=== PATIENT | male | born 1975 | race Caucasian/White ===

== ENCOUNTER → 2021-09-22 14:25 | Outpatient (BNVA) | payer MEDICAID, SELFPAY | PROVIDERS: PCP Hospitalist; Referring Provider Hospitalist; Visit Provider Internal Medicine | DX: Z95.3 Presence of xenogenic heart valve (principal); Z86.79 Personal history of other diseases of the circulatory system | CPT/HCPCS: 93005; 99202 ==

== ENCOUNTER → 2021-11-07 12:46 | Outpatient (REF) | payer MEDICAID, SELFPAY ==
--- NOTE | 2021-11-07 12:53 | CA_ITS ---
Transthoracic Echocardiogram Patient (Last, First, Middle): Jesus Alberto Galloway, Gender: Male Date of : 1975 Age: 46 Procedure Date: 11/07/2021 Procedure Type: Transthoracic Echocardiogram Location: OP Height: 185.42 cm Weight: 81.65 kg BSA: 2.06 m2 Heart Rate: bpm BP: 130 / 82 mmHg Husker Operator: LUL Referring MD: Shahbaz Tsai MD Air Tank Assembler: Kishore Alcantar MD Symptoms: Z95.3 - Presence of xenogenic heart valve Study Quality: Fair ECG Rhythm: Sinus Conclusions: - 1. Low normal LV ejection fraction with LVEF of 50-55% 2. Normally function bioprosthetic aortic valve 3. Eccentric mild aortic regurgitation 4. Normal RV systolic pressure 5. No gross pericardial effusion Findings Left Ventricle Normal left ventricular cavity size. There is normal left ventricular wall thickness. The left ventricular systolic function is low normal. The visually estimated ejection fraction is between 50-55%. Regional wall motion abnormalities can not be excluded due to suboptimal endocardial definition. There is paradoxical septal motion consistent with post-operative status. Diastolic function is indeterminate on the basis of available data. Right Ventricle Normal right ventricular cavity size and systolic function. Atria The left atrium is normal in size. Interatrial shunt cannot be excluded. The right atrium was not well visualized. Aortic Valve The aortic valve structure and function is likely normal. There is no aortic valve stenosis. There is mild aortic valve regurgitation. Mitral Valve A bioprosthetic mitral valve is present. The prosthetic mitral valve appears to be functioning normally. The mean mitral valve gradient is 4.00 mmHg. the valve is well seated without abnormal rocking motion. Pulmonic Valve The pulmonic valve was not well visualized. Tricuspid Valve Likely normal tricuspid valve structure and function. There is trace tricuspid valve regurgitation. The right ventricular systolic pressure is normal. Normal right atrial pressure. There is no evidence of pulmonary hypertension. Great Vessels All visible segments of the aorta are normal in size. The pulmonary artery was not well visualized. Venous The inferior vena cava is normal in size and collapses greater than 50% with inspiration. Pericardium/Pleural There is no evidence of pericardial effusion. Prior Study Comparison No prior study available for comparison. Measurements 2D Linear Measurements IVSd: 0.92 0.6-0.9/0.6-1.0 cm LVIDd: 4.03 3.9-5.3/4.2-5.9 cm LVIDd Index: 1.96 2.4-3.2/2.2-3.1 cm/m2 LVIDs: 2.83 2.0-3.6 cm LVPWd: 1.02 0.7-1.1 cm LA Diam: 3.10 2.7-3.8/3.0-4.0 cm LAIDs Index: 1.50 1.5-2.3 cm/m2 LV Mass: 152.88 67-162/88-224 g LV Mass Index: 74.22 43-95/49-115 g/m2 LVOT Diam: 2.10 3.0+(-)1.3 cm 2D Systolic Function EF 4C: 52.40 >55% EF 2C: 57.50 >55% EF BiP: 53.70 >55% Mitral Valve MV VTI: 0.44 MV Pk David: 1.49 MV Mn David: 0.93 MV Pk Grad: 9.00 MV Mn Grad: 4.00 MV Pk E: 1.31 MV PK A: 1.29 MV Decel Time: 251.00 E/A: 1.00 E'Lateral: 9.25 E'Medial: 7.18 E/E' Med: 18.20 E/E' Lat: 14.20 PHT: 74.00 MVA PHT: 2.97 MVA Continuity: 1.38 Decel Placer: 5.22 Aortic Valve AoV Pk David: 1.30 AoV Mn David: 0.88 AoV VTI: 0.25 AoV Pk Grad: 7.00 Aov Mn Grad: 4.00 JAJA Cont.VTI: 2.46 LVOT LVOT Pk David: 0.98 LVOT Mn David: 0.66 LVOT VTI: 0.18 LVOT Pk Grad: 4.00 LVOT Mn Grad: 2.00 LVOT Diam: 2.10 LVOT Area: 3.46 Diastolic Function MV Pk E: 1.31 MV Pk A: 1.29 E/A: 1.00 E'Medial: 7.18 E/E' Med: 18.20 E' Laterial: 9.25 E/E' Lat: 14.20 Right Ventricle TAPSE (mm): 17.80 TVS' David: 8.92 Tricuspid Valve TR Pk David: 1.59 TR Pk Grad: 10.00 RA Press: 3.00 RVSP: 13.00 Great Vessels Aorta Sinus of Valsalva: 3.49 2.0-3.[address] Ridge: 2.77 1.7-3.4 cm Ao Asc: 3.30 2.1-3.4 cm Ao Arch: 2.80 Updated in Other Vendor System with Status of Final Kishore Alcantar MD electronically signed on 11/08/2021 12:14:38 PM with status of Final
== END ==
LOC: HO.CARD 12:46
PROVIDERS: PCP Hospitalist; Visit Provider Internal Medicine
DX: Z95.3 Presence of xenogenic heart valve (principal)
CPT/HCPCS: 93306

== ENCOUNTER → 2021-12-02 12:21 | Outpatient (BNVA) | payer MEDICAID, SELFPAY | PROVIDERS: PCP Hospitalist; Referring Provider Hospitalist; Visit Provider Internal Medicine | DX: Z95.3 Presence of xenogenic heart valve (principal); Z86.79 Personal history of other diseases of the circulatory system; Z79.82 Long term (current) use of aspirin; Z79.899 Other long term (current) drug therapy | CPT/HCPCS: 99212 ==

== ENCOUNTER 2022-04-02 07:11 | Outpatient (REF) | payer MEDICAID, SELFPAY ==
--- NOTE | ~2022-04-02 | CT_ITS ---
EXAMINATION: CT HEAD WITHOUT CONTRAST CLINICAL INFORMATION: Stroke COMPARISON: None TECHNIQUE: Contiguous axial imaging was performed from the skull base to vertex without intravenous administration of contrast. This CT examination was performed using dose optimization techniques as appropriate, variously including the following: *Automated exposure control *Adjustment of mA and/or kV according to patient size (this includes techniques or standardized protocols for targeted exams where dose is matched to indication/reason for exam; i.e. extremities or head) *Use of iterative reconstruction technique DLP: 780 mGy-cm FINDINGS: There is no evidence of an extra-axial collection. There is no evidence of intra-axial or extra-axial hemorrhage. Ventricles and extra-axial CSF spaces are appropriate. There is nonspecific periventricular white matter disease. There is low-attenuation seen in the bilateral thalamus and basal ganglia, right greater than left, probably representing small lacunar infarcts. Review of bone windows is normal. There is sinus disease in the bilateral posterior ethmoid and sphenoid sinuses. CT/CT head/brain wo con IMPRESSION: Nonspecific periventricular white matter disease and probable bilateral thalamic and basal ganglia lacunar infarcts, right greater than left. Ethmoid and sphenoid sinus disease.
== END 2022-04-02 07:12 | disposition home or self-care (01) ==
LOC: HO.CT 07:11
PROVIDERS: Visit Provider Psychiatry & Neurology Neurology
DX: I63.9 Cerebral infarction, unspecified (principal)
CPT/HCPCS: 70450

== ENCOUNTER 2022-08-18 10:28 | Emergency (ER) | payer MEDICAID, SELFPAY ==
--- NOTE | ~2022-08-18 | CT_ITS ---
EXAMINATION: CT HEAD WITHOUT CONTRAST CLINICAL INFORMATION: Left upper extremity numbness COMPARISON: 04/02/2022 TECHNIQUE: Contiguous axial imaging was performed from the skull base to vertex without intravenous administration of contrast. This CT examination was performed using dose optimization techniques as appropriate, variously including the following: *Automated exposure control *Adjustment of mA and/or kV according to patient size (this includes techniques or standardized protocols for targeted exams where dose is matched to indication/reason for exam; i.e. extremities or head) *Use of iterative reconstruction technique DLP: 720 mGy-cm FINDINGS: Deep white matter low-attenuation in the periventricular regions and thalamic regions are noted. Given the patient's age, consideration should be given to a primary demyelinating process. MRI with diffusion-weighted sequences is advised. No hemorrhage, mass or mass effect. No extra-axial collections. Overall findings are considered stable. Sulci and ventricles are normal in size. Calvarium intact. CT/CT head/brain wo IV con IMPRESSION: Persistent white matter changes noted. Recommend MRI to exclude a demyelinating process or neuro Lyme disease.
[2022-08-18 10:42] VITALS: BP 105/78; BP 112/80; PULSE 78; RESP 18; TEMP 36.6; O2SAT 95; O2SAT 96; BMI 20.3
[2022-08-18 10:45] VITALS: BP 105/65; PULSE 78; RESP 14; TEMP 36.6; O2SAT 97
--- NOTE | 2022-08-18 11:38 | ECG_ITS ---
Test Reason : LEFT SIDE NUMBNESS Blood Pressure : / mmHG Vent. Rate : 062 BPM Atrial Rate : 062 BPM P-R Int : 166 ms QRS Dur : 082 ms QT Int : 414 ms P-R-T Axes : 065 006 064 degrees QTc Int : 420 ms Normal sinus rhythm Normal ECG No previous ECGs available Referred By: Isidro Mccray Electronically Signed By:Thien Velázquez
--- NOTE | 2022-08-18 12:08 | ED.NEUROSD ---
HPI - Neuro Symptoms/Deficit General Chief Complaint: Neuro Symptoms/Deficit Stated Complaint: LT SIDE NUMBNESS TINGLING Time Seen by Provider: 08/18/22 10:59 Source: patient Mode of arrival: ambulatory Limitations: no limitations History of Present Illness HPI Narrative: 47-year-old male history of endocarditis history of of CVA in 2019 with slight left-sided weakness since stroke 2019 sent from [facility] for evaluation of numbness/tingling of left side extremities. Patient states since having stroke 2019 he has had chronic numbness/tingling of left-sided extremity and also chronic left sided weakness. Patient states presently no facial droop, slurred speech, paralysis of extremities, dizziness, headache, chest pain, shortness of breath, or loss of vision. Patient denies any new weakness in extremities. Related Data Home Medications Medication Instructions Recorded Confirmed apixaban 5 mg tablet 5 mg PO BID 09/22/21 12/02/21 aspirin 81 mg tablet,delayed 81 mg PO DAILY 09/22/21 12/02/21 release atorvastatin 20 mg tablet 20 mg PO BEDTIME 09/22/21 12/02/21 duloxetine 60 mg capsule,delayed 60 mg PO DAILY 09/22/21 12/02/21 release (Cymbalta) folic acid 1 mg tablet 1 mg PO DAILY 09/22/21 12/02/21 furosemide 20 mg tablet 20 mg PO DAILY 09/22/21 12/02/21 gabapentin 400 mg capsule 400 mg PO BID 09/22/21 12/02/21 gabapentin 800 mg tablet 800 mg PO DAILY 09/22/21 12/02/21 hydroxyzine HCl 50 mg tablet 50 mg PO BID 09/22/21 12/02/21 levetiracetam 750 mg tablet 750 mg PO BID 09/22/21 12/02/21 (Keppra) melatonin 3 mg capsule 3 mg PO BEDTIME PRN 09/22/21 12/02/21 ondansetron HCl 4 mg tablet 4 mg PO Q8H 09/22/21 12/02/21 posaconazole 100 mg tablet,delayed 300 mg PO DAILY 09/22/21 12/02/21 release sennosides 8.6 mg capsule (senna) 8.6 mg PO DAILY 09/22/21 12/02/21 thiamine HCl (vitamin B1) 100 mg 50 mg PO DAILY 09/22/21 12/02/21 tablet trazodone 100 mg tablet 100 mg PO BEDTIME PRN 09/22/21 12/02/21 Allergies Allergy/AdvReac Type Severity Reaction Status Date / Time No Known Allergies Allergy Verified 12/02/21 12:33 Review of Systems Review of Systems: numbness and left tingling left side of body PMFSH Past Medical History Surgical History History of heart valve replacement (~10/2020) Family History Family History Father No problems noted. Mother No problems noted. Social History Social History Patient Tobacco Use Status: Current everyday Tobacco user Cigarettes Per Day: 4 Smoked in Last 30 Days: No Use of substances other than those prescribed or required for medical reasons: No Advance Directives: No Advance Directives Information Provided: Yes Physical Exam Vital Signs: Vital Signs: Last Vital Signs Temp 97.9 F 08/18/22 13:07 Pulse 66 08/18/22 13:07 Resp 14 08/18/22 13:07 BP 104/71 08/18/22 13:07 Pulse Ox 98 08/18/22 13:07 O2 Del Method 08/18/22 13:07 BMI result Body Mass Index 20.3 Const: General: cooperative, healthy appearing, comfortable, no acute distress, well developed, alert, awake and Physically active Orientation/consciousness: oriented to person, oriented to place, oriented to time and patient oriented x3 HEENT: Head: Yes normal to inspection, Yes No palpable skull fracture present, Yes normocephalic, Yes atraumatic and No abrasion Eyes: General: appearance normal, both eyes and all related structures Neck: Neck: Yes normal visual inspection, Yes full ROM, Yes no lymphadenopathy, Yes no meningeal signs, Yes trachea midline, Yes supple, No anterior neck swelling and No tender Chest: Chest palpation & inspection: normal inspection of the chest and normal palpation of entire chest wall Resp: Effort & Inspection: normal respiratory effort and able to speak in complete sentences Auscultation: clear to auscultation bilaterally Cardio: Jugular venous distension: no JVD Heart sounds: S1 normal heart sound present and S2 normal heart sound present GI: Inspection: Yes normal to inspection Palpation (GI): Soft to palpation, not firm, nontender, no guarding and not rigid : General: No CVA tenderness and Yes no CVA tenderness Back/Spine/Pelvis: Back: no CVA tenderness, No CVA tenderness and No back tenderness Skin: General skin exam: no rashes or lesions noted and elasticity normal Neuro: Other: Negative pronator drift. Negative slurred speech. Negative Romberg. [id number] rapid hand movement intact. Negative facial droop. Patient has sensation all extremities. Left-sided extremities 4+ strength which is patient's baseline. Right-sided extremities 5+. General: oriented to person, oriented to place, oriented to time, patient oriented x3, gait normal, tone normal, moves all extremities, Normal light touch and pain sensation, no meningeal signs, no focal motor deficits and CN's II-XI intact bilaterally Course Course Course Narrative: NIH core is zero. Will send for dry head CT scan and labs and EKG. Casee discuused with Dr. Bach no need for code stroke. Reevaluation(s) Reevaluation #1: No need for code stroke. Head CT scan negative for stroke but does shows demyelinating process of CT scan. Patient informed you need to follow-up outpatient MRI and neurologist. And is [facility] facility. Patient walk around the ER without any neuro deficits. EKG 1st troponin negative. Patient refused 2nd troponin. Patient understand risks of if there is an actual myocardial infarction. Patient still refused. Patient will go back to [facility]. Patient given copy of CAT scan results. Time: 16:18 Reevaluation #2: Normal sinus rhythm. Ventricular rate 62. Pr interval 166. QRS 82. QTC 420. Negative STEMI. Patient given copy of CT scan with reading of demyelinating process. EMS picked the patient was [facility] have outpatient follow-up MRI. Time: 16:44 Medical Decision Making Lab Data Result Diagrams: 08/18/22 12:32 08/18/22 12:16 Labs: Lab Results 08/18/22 08/18/22 12 Range/Units 12:16 12:16 12:32 WBC 8.3 (4.8-10.8) X10*3/uL RBC 4.68 (4.60-5.80) X10*6/uL Hgb 15.4 (14.0-18.0) g/dl Hct 43.6 (42.0-52.0) % MCV 93.2 (80.0-98.0) fL MCH 32.9 (27.0-33.0) pg MCHC 35.3 (31.0-36.0) g/dl RDW 11.3 (11.0-16.0) % Plt Count 219 (160-400) X10*3/uL MPV 10.9 (9.4-12.4) fL Immature Gran % (Auto) 0.2 (0.0-0.4) % Neut % (Auto) 63.7 (45-73) % Lymph % (Auto) 27.2 (20-40) % [place] % (Auto) 6.3 (2-11) % Eos % (Auto) 2.4 (0-4) % Baso % (Auto) 0.2 (0-2) % Lymph # (Auto) 2.3 (1.2-4.9) X10*3/uL [place] # (Auto) 0.5 (0.1-1.2) X10*3/uL Eos # (Auto) 0.2 (0.0-0.4) X10*3/uL Baso # (Auto) 0.0 (0.0-0.2) X10*3/uL Abs Immat Gran (auto) 0.02 (0.00-0.03) X10*3/uL Absolute Neuts (auto) 5.3 (2.0-8.3) x10*3/uL Absolute Nucleated RBC 0.000 (0.0-0.012) X10*3/uL Nucleated RBC % (auto) 0.0 (0.0-0.2) /100WBC PT 17.1 H (10.0-13.1) SEC INR 1.5 H (0.9-1.1) APTT 37.2 H (26.0-36.4) SEC Sodium 141 (135-145) mmol/L Potassium 4.9 (3.3-5.1) mmol/L Chloride 107 (96-108) mmol/L Carbon Dioxide 28 (22-29) mmol/L Anion Gap 11 L (12-20) BUN 23 H (9-16) mg/dL Creatinine 1.19 (0.5-1.4) mg/dL Estim Creat Clear Calc 73.8 Estimated GFR > 60 Random Glucose 81 (60-115) mg/dL Calcium 9.5 (8.4-10.2) mg/dL Magnesium 2.0 (1.6-2.6) mg/dL Total Bilirubin 0.7 (0.0-1.0) mg/dL AST 29 (5-37) U/L ALT 55 H (0-40) U/L Alkaline Phosphatase 57 (39-117) U/L Troponin I High Sens (<3.5-35.0) ng/L Total Protein 6.9 (6.5-8.0) g/dL Albumin 4.1 (3.5-5.0) g/dL 08/18/22 Range/Units 12:32 WBC (4.8-10.8) X10*3/uL RBC (4.60-5.80) X10*6/uL Hgb (14.0-18.0) g/dl Hct (42.0-52.0) % MCV (80.0-98.0) fL MCH (27.0-33.0) pg MCHC (31.0-36.0) g/dl RDW (11.0-16.0) % Plt Count (160-400) X10*3/uL MPV (9.4-12.4) fL Immature Gran % (Auto) (0.0-0.4) % Neut % (Auto) (45-73) % Lymph % (Auto) (20-40) % [place] % (Auto) (2-11) % Eos % (Auto) (0-4) % Baso % (Auto) (0-2) % Lymph # (Auto) (1.2-4.9) X10*3/uL [place] # (Auto) (0.1-1.2) X10*3/uL Eos # (Auto) (0.0-0.4) X10*3/uL Baso # (Auto) (0.0-0.2) X10*3/uL Abs Immat Gran (auto) (0.00-0.03) X10*3/uL Absolute Neuts (auto) (2.0-8.3) x10*3/uL Absolute Nucleated RBC (0.0-0.012) X10*3/uL Nucleated RBC % (auto) (0.0-0.2) /100WBC PT (10.0-13.1) SEC INR (0.9-1.1) APTT (26.0-36.4) SEC Sodium (135-145) mmol/L Potassium (3.3-5.1) mmol/L Chloride (96-108) mmol/L Carbon Dioxide (22-29) mmol/L Anion Gap (12-20) BUN (9-16) mg/dL Creatinine (0.5-1.4) mg/dL Estim Creat Clear Calc Estimated GFR Random Glucose (60-115) mg/dL Calcium (8.4-10.2) mg/dL Magnesium (1.6-2.6) mg/dL Total Bilirubin (0.0-1.0) mg/dL AST (5-37) U/L ALT (0-40) U/L Alkaline Phosphatase (39-117) U/L Troponin I High Sens < 2.7 (<3.5-35.0) ng/L Total Protein (6.5-8.0) g/dL Albumin (3.5-5.0) g/dL NIH Stroke Scale Internal: Initial- Upon Arrival Level of Consciousness: Alert Level of Consciousness Questions: Answers both questions correctly Level of Consciousness Commands: Performs both tasks correctly Best Gaze: Normal Visual: No visual loss Facial Palsy: Normal Motor Arm (Right): No drift Motor Arm (Left): No drift Motor Leg (Right): No drift Motor Leg (Left): No drift Limb Ataxia: Absent Sensory: Normal Best Language: No aphasia Dysarthia: Normal Extinction and Inattention: No abnormality Score: 0 Discharge Plan Discharge Clinical Impression: Paresthesia Patient Disposition: er [facility] Transfer Details: BACK TO [facility] WITH [facility] Instructions: Paresthesia (ED) Additional Instructions: Return to ED immediately for any facial droop, loss of vision, paralysis of extremities, chest pain, shortness of breath, dizziness, slurred speech, or any other concerning symptoms. Prescriptions: No Action apixaban 5 mg tablet 5 mg PO BID aspirin 81 mg tablet,delayed release (DR/EC) 81 mg PO DAILY atorvastatin 20 mg tablet 20 mg PO BEDTIME duloxetine [Cymbalta] 60 mg capsule,delayed release(DR/EC) 60 mg PO DAILY furosemide 20 mg tablet 20 mg PO DAILY folic acid 1 mg tablet 1 mg PO DAILY gabapentin 400 mg capsule 400 mg PO BID gabapentin 800 mg tablet 800 mg PO DAILY hydroxyzine HCl 50 mg tablet 50 mg PO BID levetiracetam [Keppra] 750 mg tablet 750 mg PO BID melatonin 3 mg capsule 3 mg PO BEDTIME PRN ondansetron HCl 4 mg tablet 4 mg PO Q8H posaconazole 100 mg tablet,delayed release (DR/EC) 300 mg PO DAILY senna 8.6 mg capsule 8.6 mg PO DAILY thiamine HCl (vitamin B1) 100 mg tablet 50 mg PO DAILY trazodone 100 mg tablet 100 mg PO BEDTIME PRN Stand Alone Forms: Against Medical Advice Interventions: ED Discharge Assessment Last Done: 08/18/22 17:31 Discharge Date/Time: 08/18/22 17:32 Print Language: Albanian
[2022-08-18 12:28] LABS: INTERNATIONAL NORM RATIO 1.5 (0.9-1.1); Prothrombin Time 17.1 SEC (10.0-13.1)
[2022-08-18 12:31] LABS: Partial Thromboplastin Time 37.2 SEC (26.0-36.4)
[2022-08-18 12:38] LABS: Basophils Percent Auto 0.2 % (0-2); Eosinophils Absolute Auto 0.2 X10*3/uL (0.0-0.4); Eosinophils Percent Auto 2.4 % (0-4); Hematocrit 43.6 % (42.0-52.0); Hemoglobin 15.4 g/dl (14.0-18.0); Imm Gran Abs Auto 0.02 X10*3/uL (0.00-0.03); Imm Gran Pct Auto 0.2 % (0.0-0.4); Lymphocytes Absolute Auto 2.3 X10*3/uL (1.2-4.9); Lymphocytes Percent Auto 27.2 % (20-40); MANUAL DIFF FLAG NO; Mean Corpuscular HGB Conc 35.3 g/dl (31.0-36.0); Mean Corpuscular Hemoglobin 32.9 pg (27.0-33.0); Mean Corpuscular Volume 93.2 fL (80.0-98.0); Mean Platelet Volume 10.9 fL (9.4-12.4); Monocytes Absolute Auto 0.5 X10*3/uL (0.1-1.2); Monocytes Percent Auto 6.3 % (2-11); Neutrophils Absolute Auto 5.3 x10*3/uL (2.0-8.3); Neutrophils Percent Auto 63.7 % (45-73); Platelet Count 219 X10*3/uL (160-400); Red Blood Count 4.68 X10*6/uL (4.60-5.80); Red Cell Distribution Width 11.3 % (11.0-16.0); White Blood Count 8.3 X10*3/uL (4.8-10.8)
[2022-08-18 12:45] LABS: Alanine Aminotransferase 55 U/L (0-40); Albumin Level 4.1 g/dL (3.5-5.0); Alkaline Phosphatase 57 U/L (39-117); Anion Gap 11 (12-20); Aspartate Amino Transferase 29 U/L (5-37); Blood Urea Nitrogen 23 mg/dL (9-16); Calcium 9.5 mg/dL (8.4-10.2); Carbon Dioxide 28 mmol/L (22-29); Chloride 107 mmol/L (96-108); Creatinine Clr Calc Pharmacy 73.8; Estimated Glomerular Filt Rate > 60; Glucose Random 81 mg/dL (60-115); Potassium 4.9 mmol/L (3.3-5.1); Sodium 141 mmol/L (135-145); Total Protein 6.9 g/dL (6.5-8.0)
[2022-08-18 13:02] LABS: Bilirubin Total 0.7 mg/dL (0.0-1.0)
[2022-08-18 13:07] VITALS: BP 104/71; PULSE 66; RESP 14; TEMP 36.6; O2SAT 98
--- NOTE | 2022-08-18 13:13 | PC.NURSE ---
no neuro deficits noted, miranda. pt aware of plan care.
[2022-08-18 13:55] LABS: Troponin-I High Sensitivity < 2.7 ng/L (<3.5-35.0)
--- NOTE | 2022-08-18 14:55 | PC.NURSE ---
pt adamantly refused to have 2nd trop-n to be drawn by pct. mlp (sissy) aware.
--- NOTE | 2022-08-18 17:05 | PC.NURSE ---
pt refused all labs and vitals. pt states he does not want any further care done. RN aware
== END 2022-08-18 17:32 | disposition skilled nursing facility (03) ==
PROVIDERS: Physician Assistant; Emergency Provider Student in an Organized Health Care Education/Training Program; PCP Hospitalist
DX: R20.2 Paresthesia of skin (principal); F17.210 Nicotine dependence, cigarettes, uncomplicated; Z95.3 Presence of xenogenic heart valve; Z79.01 Long term (current) use of anticoagulants; Z79.82 Long term (current) use of aspirin; Z79.02 Long term (current) use of antithrombotics/antiplatelets; Z79.899 Other long term (current) drug therapy; I69.354 Hemiplegia and hemiparesis following cerebral infarction affecting left non-dominant side
CPT/HCPCS: 36415; 70450; 80053; 83735; 84484; 85025; 85610; 85730; 93005; 99284

== ENCOUNTER → 2022-12-29 08:05 | Outpatient (BNVA) | payer MEDICAID, SELFPAY | PROVIDERS: PCP Hospitalist; Referring Provider Hospitalist; Visit Provider Internal Medicine | DX: Z86.79 Personal history of other diseases of the circulatory system (principal); Z95.3 Presence of xenogenic heart valve | CPT/HCPCS: 99212 ==

== ENCOUNTER → 2023-01-11 10:46 | Outpatient (REF) | payer MEDICAID, SELFPAY ==
--- NOTE | 2023-01-11 10:51 | CA_ITS ---
Transthoracic Echocardiogram Patient (Last, First, Middle): Jesus Alberto Galloway, Gender: Male Date of : 1975 Age: 47 Procedure Date: 01/11/2023 Procedure Type: Transthoracic Echocardiogram Location: OP Height: 185.42 cm Weight: 97.52 kg BSA: 2.22 m2 Heart Rate: 57 bpm BP: 110 / 70 mmHg Spool Cleaner: ISAC Referring MD: Shahbaz Tsai MD Symptoms: Z95.3 - Presence of xenogenic heart valve Study Quality: Fair ECG Rhythm: Bradycardia Conclusions: - The left ventricular systolic function is low normal. The calculated ejection fraction is 52% by biplane method. - A bioprosthetic mitral valve is present. The prosthetic mitral valve appears to be functioning normally. - There is mild aortic valve regurgitation. Findings Left Ventricle Normal left ventricular cavity size. There is normal left ventricular wall thickness. The left ventricular systolic function is low normal. The calculated ejection fraction is 52% by biplane method. There is no evidence of regional wall motion abnormalities. Diastolic function is normal for age. LV peak GLS -12.1%. Right Ventricle Normal right ventricular cavity size. There is mildly decreased right ventricular systolic function. Atria Both atria are normal in size. Aortic Valve There is a normal trileaflet aortic valve. There is mild calcification of the aortic valve. There is no aortic valve stenosis. There is mild aortic valve regurgitation. Mitral Valve A bioprosthetic mitral valve is present. The prosthetic mitral valve appears to be functioning normally. There is no mitral valve stenosis. Mean gradient across the mitral valve 3mmHg at 58/min. Pulmonic Valve The pulmonic valve is likely normal. Tricuspid Valve Normal tricuspid valve structure. There is trace tricuspid valve regurgitation. There is no evidence of pulmonary hypertension. Great Vessels The asc aorta is normal in size. Venous The inferior vena cava is normal in size and collapses greater than 50% with inspiration. Pericardium/Pleural There is no evidence of pericardial effusion. Prior Study Comparison No significant change compared to prior study dated: 11/07/2021. Measurements 2D Linear Measurements IVSd: 1.01 0.6-0.9/0.6-1.0 cm LVIDd: 5.30 3.9-5.3/4.2-5.9 cm LVIDd Index: 2.39 2.4-3.2/2.2-3.1 cm/m2 LVIDs: 4.18 2.0-3.6 cm LVPWd: 0.97 0.7-1.1 cm LA Diam: 3.40 2.7-3.8/3.0-4.0 cm LAIDs Index: 1.53 1.5-2.3 cm/m2 LV Mass: 246.26 67-162/88-224 g LV Mass Index: 110.93 43-95/49-115 g/m2 LVOT Diam: 2.00 3.0+(-)1.3 cm 2D Systolic Function EF 4C: 50.00 >55% EF 2C: 52.20 >55% EF BiP: 51.50 >55% Mitral Valve MV VTI: 0.55 MV Pk David: 1.45 MV Mn David: 0.83 MV Pk Grad: 8.00 MV Mn Grad: 3.00 MV Pk E: 1.40 MV PK A: 1.02 MV Decel Time: 321.00 E/A: 1.40 E'Lateral: 5.85 E'Medial: 7.58 E/E' Med: 18.50 E/E' Lat: 23.90 PHT: 94.00 MVA PHT: 2.34 MVA Continuity: 0.88 Decel Mineral: 4.35 Aortic Valve AoV Pk David: 1.16 AoV Pk Grad: 5.00 AI Pk David: 4.21 AI Mineral: 1.40 LVOT LVOT Pk David: 0.78 LVOT Mn David: 0.55 LVOT VTI: 0.15 LVOT Pk Grad: 2.00 LVOT Mn Grad: 1.00 LVOT Diam: 2.00 LVOT Area: 3.14 Diastolic Function MV Pk E: 1.40 MV Pk A: 1.02 E/A: 1.40 E'Medial: 7.58 E/E' Med: 18.50 E' Laterial: 5.85 E/E' Lat: 23.90 Right Ventricle TAPSE (mm): 18.00 TVS' David: 6.83 Tricuspid Valve TR Pk David: 1.58 TR Pk Grad: 10.00 RA Press: 3.00 RVSP: 13.00 Great Vessels Aorta Sinus of Valsalva: 3.50 2.0-3.5 cm Ao Asc: 3.40 2.1-3.4 cm Pulmonary Valve PV Pk David: 0.67 Peak PV Grad: 2.00 Updated in Other Vendor System with Status of Final Shahbaz Tsai MD electronically signed on 01/11/2023 12:24:52 PM with status of Final
== END ==
LOC: HO.CARD 10:46
PROVIDERS: PCP Hospitalist; Visit Provider Internal Medicine
DX: Z95.3 Presence of xenogenic heart valve (principal); Z86.79 Personal history of other diseases of the circulatory system
CPT/HCPCS: 93306; 93356

== ENCOUNTER 2023-03-25 14:15 | Outpatient (REF) | payer MEDICAID, SELFPAY ==
--- NOTE | ~2023-03-25 | MR_ITS ---
EXAMINATION: MR BRAIN WITHOUT CONTRAST CLINICAL INFORMATION: Demyelinating process. COMPARISON: CT head from 08/18/2022. TECHNIQUE: MRI of the brain was obtained using routine sequences without contrast. FINDINGS: There are multiple T2/FLAIR hyperintense lesions. This includes lesions within the subcortical, deep white matter, periventricular, callosal, brainstem, and cerebellar distributions. Regions of chronic encephalomalacia in the high left frontal lobe. No focal restricted diffusion is demonstrated to suggest acute or subacute cerebral ischemia. No evidence of acute hemorrhagic products on heme-sensitive imaging. Punctate focus of susceptibility artifact at the junction of the left occipitotemporal lobes consistent with petechial microhemorrhage. There is a punctate T1 hyperintense lipomatous structure along the superior aspect of the superior medullary the velum. Proportional prominence of the ventricles and sulcal spaces without evidence of obstructive hydrocephalus. No abnormal mass effect. No midline shift. Normal appearance of the pituitary gland. Normal positioning of the cerebellar tonsils. Normal arterial and venous vascular flow voids are present. Normal, homogeneous marrow signal. Moderate mucosal thickening of the paranasal sinuses. Moderate rightward nasal septal deviation. No signal abnormalities within the mastoids. MR/MR head/brain wo con IMPRESSION: Moderate supratentorial and infratentorial white matter disease. This pattern of disease could be seen with an underlying diagnosis of demyelination in the appropriate clinical setting. No abnormal restricted diffusion to suggest active demyelination.
== END 2023-03-25 14:16 | disposition home or self-care (01) ==
LOC: HO.MRI 14:15
PROVIDERS: PCP Hospitalist; Visit Provider Hospitalist
DX: R20.2 Paresthesia of skin (principal); I69.398 Other sequelae of cerebral infarction
CPT/HCPCS: 70551

== ENCOUNTER 2023-09-19 12:56 | Emergency (ER) | payer MEDICARE, MEDICAID, SELFPAY ==
[2023-09-19 13:05] VITALS: BP 141/85; PULSE 70; RESP 16; TEMP 36.4; O2SAT 98; BMI 34.2
[2023-09-19] MEDS: Fluorescein Sodium STRIP 1 STRIP EYE-LEFT (13:15)
[2023-09-19] MEDS: Tetracaine HCl/PF 0.5% Oph Sol 4 ML DROPS 1 DROP EYE-LEFT (13:15)
--- NOTE | 2023-09-19 13:17 | ED_ITS ---
HPI - Eye Problem General Chief complaint: Eye Problems Stated complaint: L EYE SWELLING RED Time Seen by Provider: 09/19/23 13:02 Source: patient and EMS Mode of arrival: EMS Limitations: no limitations History of Present Illness HPI Narrative: This is a 48 years old man resident of [place] retirement presented to the emergency department complaining of left eye discomfort since this morning. 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 MD chief complaint: eye pain (let) Onset (ago): hour(s) (8) Onset description: gradual Duration: constant Location: left eye Eye Symptoms: burning Place: other ([place]) Mechanism: none Severity: mild Related Data Home Medications Medication Instructions Recorded Confirmed apixaban 5 mg tablet 5 mg PO BID 09/22/21 12/29/22 aspirin 81 mg tablet,delayed 81 mg PO DAILY 09/22/21 12/29/22 release atorvastatin 20 mg tablet 20 mg PO BEDTIME 09/22/21 12/29/22 folic acid 1 mg tablet 1 mg PO DAILY 09/22/21 12/29/22 furosemide 20 mg tablet 20 mg PO DAILY 09/22/21 12/29/22 gabapentin 400 mg capsule 400 mg PO BID 09/22/21 12/29/22 gabapentin 800 mg tablet 800 mg PO DAILY 09/22/21 12/29/22 hydroxyzine HCl 50 mg tablet 50 mg PO BID 09/22/21 12/29/22 levetiracetam 750 mg tablet 750 mg PO BID 09/22/21 12/29/22 (Keppra) melatonin 3 mg capsule 3 mg PO BEDTIME PRN 09/22/21 12/29/22 posaconazole 100 mg tablet,delayed 300 mg PO DAILY 09/22/21 12/29/22 release sennosides 8.6 mg capsule (senna) 8.6 mg PO DAILY 09/22/21 12/29/22 thiamine HCl (vitamin B1) 100 mg 50 mg PO DAILY 09/22/21 12/29/22 tablet trazodone 100 mg tablet 100 mg PO BEDTIME PRN 09/22/21 12/29/22 azithromycin 500 mg tablet 500 mg PO DAILY 12/29/22 12/29/22 (Zithromax) bisacodyl 10 mg rectal suppository 10 mg DE DAILY PRN 12/29/22 12/29/22 calcium carbonate 200 mg calcium 200 mg PO BID 12/29/22 12/29/22 (500 mg) chewable tablet (Tums) cyclobenzaprine 10 mg tablet 10 mg PO BEDTIME 12/29/22 12/29/22 diphenhydramine HCl 25 mg capsule 25 mg PO BEDTIME 12/29/22 12/29/22 (Allergy (diphenhydramine)) fluoride (sodium) 1.1 % dental 1 appl dental DAILY 12/29/22 12/29/22 paste (PreviDent 5000 [employer] Defense) multivitamin with minerals 1 cap PO DAILY 12/29/22 12/29/22 Allergies Allergy/AdvReac Type Severity Reaction Status Date / Time No Known Allergies Allergy Verified 12/29/22 08:27 Review of Systems 2 Constitutional: Constitutional: Reports no additional constitutional complaints Eyes: Eyes: Reports other (left eye pain) [facility] Past Medical History [facility] Narrative: endocarditis , status post mitral valve replacement with bioprosthetic valve Onset Date is defined in the Problem List Problems that require an onset date and time if occurred within 24 hrs of arrival to the ED Aortic Dissection and Rupture; Neurologic impairment; Cardiopulmonary Arrest; Endotracheal Intubation; Insertion or Replacement of Mechanical Circulatory Assist Device Surgical History History of heart valve replacement (~10/2020) Family History Family History Father No problems noted. Mother No problems noted. Social History Social History Patient Tobacco Use Status: Current everyday Tobacco user Cigarettes Per Day: 4 Advance Directives: No Advance Directives Information Provided: No Physical Exam 2 Vital Signs: Vital Signs: Last Vital Signs Temp 97.6 F 09/19/23 13:05 Pulse 70 09/19/23 13:05 Resp 16 09/19/23 13:05 BP 141/85 H 09/19/23 13:05 Pulse Ox 98 09/19/23 13:05 O2 Del Method Room Air 09/19/23 13:05 BMI result Body Mass Index 34.2 Const: General: cooperative Nutritional Appearance: well nourished O rientation/consciousness: patient oriented x3 Limitations: no limitations HEENT: Head: Yes normal to inspection General nose exam: Normal external nose present Mouth: Normal oral and palatal mucosa present Teeth and gingiva: dentition normal Throat: Yes posterior oropharynx normal Eyes: Other: Patient has some injected conjunctiva in the left extraocular movements are fully intact, pupils are equal reactive the eyes was examined under fluoroscopy he has corneal abrasion.see picture Ocular pressure 17 Pupils: Equal, round and reactive pupils present EOM: EOMs intact bilaterally Direct Ophthalmoscopy: normal light reflex Neck: Neck: Yes normal visual inspection Chest: Chest palpation & inspection: normal inspection of the chest Resp: Effort & Inspection: normal respiratory effort Auscultation: clear to auscultation bilaterally Cardio: Jugular venous distension: no JVD Rate: regular rate Rhythm: r egular rhythm GI: Inspection: Yes normal to inspection Palpation (GI): Soft to palpation, not firm and nontender Percussion: Yes normal to percussion Auscultation: normal bowel sounds Skin: General skin exam: no rashes or lesions noted, elasticity normal and turgor normal Neuro: General: patient oriented x3 Cranial nerves: Yes Equal, round and reactive pupils present Medications Administered Discontinued Medications Generic Name Dose Route Start Last Admin Trade Name Freq PRN Reason Stop Dose Admin Erythromycin 1 cm 09/19/23 13:31 09/19/23 14:00 Erythromycin Base 0.5% Oph Oin 1 Gm Tube EYE-LEFT 09/19/23 13:32 1 cm ONCE ONE Administration Fluorescein Sodium 1 strip 09/19/23 13:02 09/19/23 13:15 Fluorescein Sodium Strip EYE-LEFT 09/19/23 13:03 1 strip ONCE ONE Administration Tetracaine HCl 1 drop 09/19/23 13:02 09/19/23 13:15 Tetracaine Hcl/Pf 0.5% Oph Gladis 4 Ml Drops EYE-LEFT 09/19/23 13:03 1 drop ONCE ONE Administration Medical Decision Making Medical Decision Making MDM Narrative: pt presented with left eye disconfort from [place] ,exam c/w corneal abrasion will d/c home with erythromycin oint and follow up with ophalmologist Differential Diagnosis Differential Diagnoses: The differential diagnosis associated with the presentation includes conjuntivitis/foreign body corneal abrasion Admission/Observation Consideration of admission/observation: Escalation of care including admission/observation considered Discharge Plan Discharge Clinical Impression: Abrasion, corneal Qualifiers: Encounter type: initial encounter Laterality: left Qualified Code(s): S05.02XA - Injury of conjunctiva and corneal abrasion without foreign body, left eye, initial encounter Patient [facility]position: [facility] Swing Bed Instructions: Corneal Abrasion (DC) Additional Instructions: Apply antibiotic ointment E-Mycin to the left eye 4 times a day ibuprofen 800 mg every 8 hours for pain along with Tylenol. Return if worse Prescriptions: No Action cyclobenzaprine 10 mg tablet 10 mg PO BEDTIME diphenhydramine HCl [Allergy (diphenhydramine)] 25 mg capsule 25 mg PO BEDTIME bisacodyl 10 mg suppository 10 mg DE DAILY PRN multivitamin with minerals Capsule 1 cap PO DAILY fluoride (sodium) [PreviDent 5000 [employer] Defense] 1.1 % paste 1 appl dental DAILY calcium carbonate [Tums] 200 mg calcium (500 mg) tablet,chewable 200 mg PO BID azithromycin [Zithromax] 500 mg tablet 500 mg PO DAILY apixaban 5 mg tablet 5 mg PO BID aspirin 81 mg tablet,delayed release (DR/EC) 81 mg PO DAILY atorvastatin 20 mg tablet 20 mg PO BEDTIME furosemide 20 mg tablet 20 mg PO DAILY folic acid 1 mg tablet 1 mg PO DAILY gabapentin 400 mg capsule 400 mg PO BID gabapentin 800 mg tablet 800 mg PO DAILY hydroxyzine HCl 50 mg tablet 50 mg PO BID levetiracetam [Keppra] 750 mg tablet 750 mg PO BID melatonin 3 mg capsule 3 mg PO BEDTIME PRN posaconazole 100 mg tablet,delayed release (DR/EC) 300 mg PO DAILY senna 8.6 mg capsule 8.6 mg PO DAILY thiamine HCl (vitamin B1) 100 mg tablet 50 mg PO DAILY trazodone 100 mg tablet 100 mg PO BEDTIME PRN Referrals: Ritesh Norman [Physician] - 2 days Interventions: ED Discharge Assessment Last Done: 09/19/23 15:06 Discharge Date/Time: 09/19/23 15:06
[2023-09-19] MEDS: Erythromycin Base 0.5% Oph Oin 1 GM TUBE 1 CM EYE-LEFT (14:00)
--- NOTE | 2023-09-19 14:34 | PC.NURSE ---
spoke with care one provider about following up with ophthalmology. returning to [facility] after examination by provider, concern for abrasion. being sent back with erythromycin. resting quietly in room, no obvious signs of distress. call craft within reach.
== END 2023-09-19 15:06 | disposition swing bed (61) ==
PROVIDERS: Emergency Provider Emergency Medicine; PCP Hospitalist
DX: S05.02XA Injury of conjunctiva and corneal abrasion without foreign body, left eye, initial encounter (principal); H57.12 Ocular pain, left eye; X58.XXXA Exposure to other specified factors, initial encounter; Y93.9 Activity, unspecified; Y92.9 Unspecified place or not applicable; Y99.8 Other external cause status; Z79.899 Other long term (current) drug therapy
CPT/HCPCS: 99283; 99284

== ENCOUNTER 2024-01-04 08:44 | Outpatient (AMB) | payer MEDICAID, SELFPAY ==
[2024-01-04 08:59] VITALS: BP 110/64; PULSE 93; BMI 30.5
--- NOTE | 2024-01-04 08:59 | MHC.OFFVIS ---
Vital Signs 01/04/24 08:59 Height 5 ft 11 in Weight 218 lb 11.177 oz BMI 30.5 BP 110/64 Blood Pressure Location Lt brachial Position Sitting Pulse 93 Intake Visit Reasons: 1 yr f/up Printing Sales Representative Required: No Accompanied by: Self / Same As Patient Allergies No Known Allergies Allergy (Verified 12/29/22 08:27) Medication List - Last Reconciled 01/04/24 by Shahbaz Tsai MD aspirin 81 mg PO DAILY atorvastatin 20 mg PO BEDTIME azithromycin (Zithromax) 500 mg PO DAILY bisacodyl 10 mg MA DAILY PRN calcium carbonate (Tums) 200 mg PO BID cyclobenzaprine 10 mg PO BEDTIME diphenhydramine HCl (Allergy (diphenhydramine)) 25 mg PO BEDTIME fluoride (sodium) 1.1% (ShiftPlanningiDent [employer]notes) 1 appl dental DAILY folic acid 1 mg PO DAILY furosemide 20 mg PO DAILY gabapentin 800 mg PO DAILY gabapentin 400 mg PO BID hydroxyzine HCl 50 mg PO BID melatonin 3 mg PO BEDTIME PRN multivitamin with minerals 1 cap PO DAILY posaconazole 300 mg PO DAILY sennosides (senna) 8.6 mg PO DAILY thiamine HCl (vitamin B1) 50 mg PO DAILY trazodone 100 mg PO BEDTIME PRN HPI Comments Details: Jesus Alberto returns for follow-up. He lives in [facility]. To recall, there is a history of mitral valve replacement. 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 He underwent bioprosthetic mitral valve replacement at [facility]. Subsequently, he has been sent to [facility] for rehabilitation. Since last seen, no new complaints. He states he is doing good. No angina or shortness of breath or in fact anything cardiac sounding. [facility] Surgical History History of heart valve replacement (~10/2020) Family History Father No problems noted. Mother No problems noted. Social History Patient Tobacco Use Status: Current everyday Tobacco user Cigarettes Per Day: 4 Review of Systems Const Denies chills, Denies fatigue, Denies fever(s), Denies frequent falls, Denies weakness, Denies weight gain and Denies weight loss ENT Denies dizziness Card Denies chest pain, Denies leg edema, Denies lightheadedness, Denies palpitations, Denies dyspnea and Denies dyspnea on exertion Resp Denies cough, Denies dyspnea and Denies dyspnea on exertion GI Denies hematochezia Musc Denies abnormal gait, Denies muscle weakness, Denies numbness, Denies radiating pain into limb and Denies tingling Neuro Denies abnormal gait, Denies dizziness, Denies frequent falls, Denies numbness, Denies tingling and Denies weakness Endo Denies fatigue and Denies palpitations Physical Exam Vital Signs: Last Vital Signs Pulse 93 01/04/24 08:59 BP 110/64 01/04/24 08:59 BMI result Body Mass Index 30.5 Const General: comfortable and no acute distress Orientation/consciousness: patient oriented x3 HEENT Other: Unremarkable Head: Yes normal to inspection Neck Neck: Yes normal visual inspection Chest Chest palpation & inspection: normal inspection of the chest Resp Auscultation: clear to auscultation bilaterally Cardio Palpation: normal PMI Heart sounds: S1 normal heart sound present, S2 normal heart sound present, no gallops, no murmurs and no rubs GI Palpation (GI): Soft to palpation Back/Spine/Pelvis Other: unremarkable Skin General skin exam: no rashes or lesions noted Neuro General: patient oriented x3 Extrem General: Yes normal to inspection Psych Mental Status: mental status grossly normal Office Procedures EKG Details: EKG with sinus rhythm at 93/Min; nonspecific ST-T changes; [place] [id number], Complete Assessment & Plan Assessment & Plan (1) Status post mitral valve replacement with bioprosthetic valve: Code(s): Z95.3 - Presence of xenogenic heart valve Category: Surgical (2) History of endocarditis: Code(s): Z86.79 - Personal history of other diseases of the circulatory system Category: Medical Plan s/p mitral valve repair 2016. 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 Hence underwent redo sternotomy and replacement of mitral valve with 31 mm pericardial tissue valve. November 2020, ISMAEL- [id number] aortic regurgitation. In that study, the bioprosthetic mitral valve was reported to be functioning normally with trace regurgitation. TTE 2021- bioprosthetic mitral valve was functioning normally with a mean gradient of 4 mm Hg across the valve. There was mild aortic regurgitation. LVEF was 50-55%. Last echocardiogram is from 2022 and that showed low normal LVEF at 52%. Normal functioning bioprosthetic aortic valve. We can repeat another study. Otherwise, continue aspirin. Infective endocarditis prophylaxis per protocol. Follow-up in 1 year. Coding Level of Care Code Est Pt Level 4 (72869) Diagnoses Status post mitral valve replacement with bioprosthetic valve Z95.3 History of endocarditis Z86.79 CPT Codes EKG - CPT: 31811-[id number], Complete ([id number])
== END 2024-01-04 09:24 | disposition home or self-care (01) ==
PROVIDERS: Visit Provider Internal Medicine
DX: Z95.3 Presence of xenogenic heart valve (principal); Z86.79 Personal history of other diseases of the circulatory system
CPT/HCPCS: 93010; 99214

== ENCOUNTER → 2024-01-04 08:44 | Outpatient (BNVA) | payer MEDICAID, SELFPAY | PROVIDERS: Visit Provider Internal Medicine | DX: Z95.3 Presence of xenogenic heart valve (principal); Z86.79 Personal history of other diseases of the circulatory system; Z79.82 Long term (current) use of aspirin | CPT/HCPCS: 93005; 99212 ==

== ENCOUNTER → 2024-01-18 14:55 | Outpatient (REF) | payer MEDICAID, SELFPAY ==
--- NOTE | 2024-01-18 14:59 | CA_ITS ---
Transthoracic Echocardiogram Patient (Last, First, Middle): Jesus Alberto Galloway, Gender: Male Date of : 1975 Age: 48 Procedure Date: 01/18/2024 Procedure Type: Transthoracic Echocardiogram Location: OP Height: 185.42 cm Weight: 99.79 kg BSA: 2.24 m2 Heart Rate: 70 bpm BP: 114 / 64 mmHg Pulp Grinder: SB Referring MD: Shahbaz Tsai MD Symptoms: Z95.3 - Presence of xenogenic heart valve Study Quality: Fair ECG Rhythm: Sinus Conclusions: - The left ventricular systolic function is mildly decreased. The visually estimated ejection fraction is between 40-45%. - A bioprosthetic mitral valve is present. The prosthetic mitral valve appears to be functioning normally. Findings Procedure Information The quality of the study was technically difficult. The study quality is limited by patients body habitus. Left Ventricle Normal left ventricular cavity size. There is normal left ventricular wall thickness. The left ventricular systolic function is mildly decreased. The visually estimated ejection fraction is between 40-45%. Diastolic function is indeterminate on the basis of available data. Right Ventricle Normal right ventricular cavity size. There is mild to moderately decreased right ventricular systolic function. Atria Both atria are normal in size. Aortic Valve There is a normal trileaflet aortic valve. There is no aortic valve stenosis. There is mild aortic valve regurgitation. Mitral Valve A bioprosthetic mitral valve is present. The prosthetic mitral valve appears to be functioning normally. There is no mitral valve regurgitation. Pulmonic Valve The pulmonic valve is likely normal. Tricuspid Valve There is trace tricuspid valve regurgitation. There is no evidence of pulmonary hypertension. Great Vessels The asc aorta and aortic arch are normal in size. Venous The inferior vena cava was not well visualized. Pericardium/Pleural There is no evidence of pericardial effusion. Prior Study Comparison Changes noted compared to prior study dated: 01/11/2023. LVEF lower than prior study, but on visual comparison, not much different. Measurements 2D Linear Measurements IVSd: 0.94 0.6-0.9/0.6-1.0 cm LVIDd: 4.57 3.9-5.3/4.2-5.9 cm LVIDd Index: 2.04 2.4-3.2/2.2-3.1 cm/m2 LVIDs: 3.48 2.0-3.6 cm LVPWd: 1.20 0.7-1.1 cm LV Mass: 215.07 67-162/88-224 g LV Mass Index: 96.02 43-95/49-115 g/m2 LVOT Diam: 2.30 3.0+(-)1.3 cm 2D Systolic Function EF 4C: 50.70 >55% EF 2C: 39.60 >55% EF BiP: 45.70 >55% Mitral Valve MV VTI: 0.43 MV Pk David: 1.45 MV Mn David: 1.00 MV Pk Grad: 8.00 MV Mn Grad: 4.00 MV Pk E: 1.20 MV PK A: 1.24 MV Decel Time: 292.00 E/A: 1.00 E'Lateral: 5.43 E'Medial: 3.85 E/E' Med: 31.20 E/E' Lat: 22.10 PHT: 85.00 MVA PHT: 2.59 MVA Continuity: 1.09 Decel Parmer: 4.12 Aortic Valve AoV Pk David: 1.02 AoV Pk Grad: 4.00 JAJA: 2.43 LVOT LVOT Pk David: 0.66 LVOT Mn David: 0.46 LVOT VTI: 0.11 LVOT Pk Grad: 2.00 LVOT Mn Grad: 1.00 LVOT Diam: 2.30 LVOT Area: 4.15 Diastolic Function MV Pk E: 1.20 MV Pk A: 1.24 E/A: 1.00 E'Medial: 3.85 E/E' Med: 31.20 E' Laterial: 5.43 E/E' Lat: 22.10 Right Ventricle TAPSE (mm): 13.80 TVS' David: 6.73 Tricuspid Valve RA Press: 3.00 Great Vessels Aorta Sinus of Valsalva: 3.30 2.0-3.5 cm Ao Asc: 3.50 2.1-3.4 cm Ao Arch: 3.20 Pulmonary Valve PV Pk David: 0.61 Peak PV Grad: 2.00 Updated in Other Vendor System with Status of Final Shahbaz Tsai MD electronically signed on 01/19/2024 12:28:00 PM with status of Final
== END ==
LOC: HO.CARD 14:55
PROVIDERS: PCP Hospitalist; Visit Provider Internal Medicine
DX: Z95.3 Presence of xenogenic heart valve (principal)
CPT/HCPCS: 93306

== ENCOUNTER → 2024-01-18 14:59 | Outpatient (BNV) | payer MEDICAID, SELFPAY | PROVIDERS: PCP Hospitalist; Visit Provider Internal Medicine | DX: I35.1 Nonrheumatic aortic (valve) insufficiency (principal); Z95.3 Presence of xenogenic heart valve | CPT/HCPCS: 93306 ==

== ENCOUNTER → 2024-12-20 09:53 | Outpatient (REF) | payer MEDICAID, SELFPAY ==
--- NOTE | 2024-12-20 10:03 | CA_ITS ---
Transthoracic Echocardiogram Patient (Last, First, Middle): Jesus Alberto Galloway, Gender: Male Date of : 1975 Age: 49 Procedure Date: 12/20/2024 Procedure Type: Transthoracic Echocardiogram Location: OP Height: 185.42 cm Weight: 99.79 kg BSA: 2.24 m2 Heart Rate: bpm BP: 128 / 90 mmHg Rolling Machine Tender: TO Referring MD: Shahbaz Tsai MD Symptoms: Z95.3 - Presence of xenogenic heart valve Study Quality: Fair/Contrast ECG Rhythm: Sinus Conclusions: - The left ventricular systolic function is mildly decreased. The visually estimated ejection fraction is between 40-45%. - A bioprosthetic mitral valve is present. The prosthetic mitral valve appears to be functioning normally. Findings Procedure Information Contrast agent, definity, is being given per protocol without apparent complications. Left Ventricle Normal left ventricular cavity size. The left ventricular systolic function is mildly decreased. The visually estimated ejection fraction is between 40 45%. There is mild global hypokinesis. Diastolic function is indeterminate on the basis of available data. Right Ventricle Normal right ventricular cavity size. There is mildly decreased right ventricular systolic function. Atria Both atria are normal in size. Aortic Valve There is a normal trileaflet aortic valve. There is no aortic valve stenosis. There is mild aortic valve regurgitation. Mitral Valve A bioprosthetic mitral valve is present. The prosthetic mitral valve appears to be functioning normally. There is no mitral valve regurgitation. There is no mitral valve stenosis. Mean gradient across the mitral valve 3 mm Hg at 74/Min. Pulmonic Valve The pulmonic valve is likely normal. Tricuspid Valve There is trace tricuspid valve regurgitation. There is no evidence of pulmonary hypertension. Great Vessels The asc aorta is normal in size. Venous The inferior vena cava is normal in size and collapses greater than 50% with inspiration. Pericardium/Pleural There is no evidence of pericardial effusion. Prior Study Comparison No significant change compared to prior study dated: 01/18/2024. Measurements 2D Linear Measurements IVSd: 0.94 0.6-0.9/0.6-1.0 cm LVIDd: 4.22 3.9-5.3/4.2-5.9 cm LVIDd Index: 1.88 2.4-3.2/2.2-3.1 cm/m2 LVIDs: 3.33 2.0-3.6 cm LVPWd: 0.84 0.7-1.1 cm LA Diam: 2.70 2.7-3.8/3.0-4.0 cm LAIDs Index: 1.21 1.5-2.3 cm/m2 LV Mass: 146.26 67-162/88-224 g LV Mass Index: 65.29 43-95/49-115 g/m2 LVOT Diam: 2.10 3.0+(-)1.3 cm 2D Systolic Function EF 4C: 52.20 >55% EF 2C: 48.80 >55% EF BiP: 49.60 >55% Mitral Valve MV VTI: 0.40 MV Pk David: 1.39 MV Mn David: 0.89 MV Pk Grad: 8.00 MV Mn Grad: 4.00 MV Pk E: 1.19 MV PK A: 1.07 MV Decel Time: 252.00 E/A: 1.10 E'Lateral: 5.22 E'Medial: 4.90 E/E' Med: 24.30 E/E' Lat: 22.80 PHT: 74.00 MVA PHT: 2.97 MVA Continuity: 0.98 Decel Benton: 4.71 Aortic Valve AoV Pk David: 1.25 AoV Mn David: 0.87 AoV VTI: 0.22 AoV Pk Grad: 6.00 Aov Mn Grad: 3.00 JAJA Cont.VTI: 1.78 AI Pk David: 3.97 AI Benton: 1.49 LVOT LVOT Pk David: 0.71 LVOT Mn David: 0.44 LVOT VTI: 0.11 LVOT Pk Grad: 2.00 LVOT Mn Grad: 1.00 LVOT Diam: 2.10 LVOT Area: 3.46 Diastolic Function MV Pk E: 1.19 MV Pk A: 1.07 E/A: 1.10 E'Medial: 4.90 E/E' Med: 24.30 E' Laterial: 5.22 E/E' Lat: 22.80 Right Ventricle TAPSE (mm): 14.30 TVS' David: 7.94 Tricuspid Valve RA Press: 3.00 Great Vessels Aorta Sinus of Valsalva: 3.61 2.0-3.5 cm Ao Asc: 3.50 2.1-3.4 cm Updated in Other Vendor System with Status of Final Shahbaz Tsai MD electronically signed on 12/22/2024 12:55:49 PM with status of Final
--- OUTSIDE RECORDS SUMMARY | 2024-12-20 11:20 | XMS_ITS | Encounter Summary ---
Author Organization [facility] Address [id number] [place] [address] Care Team Providers Care Conveyor Line Battery Charger Name Role Phone Ritesh Hong MD Primary Care Provider [phone] Encounter Details Date Type Department Care Team (Late st Contact Info) Description 09/14/2024 Lab Requisition [facility] - Main Lab [address] [place] [address] Ritesh Hong MD [address] [place] [address] [address] [place], [place] Metabolic encephalopathy Social History Tobacco Use Types Packs/Day Years Used Date Smoking Tobacco: Never Assessed Sex and Gender Information Value Date Recorded Sex Assigned at Not on file Legal Sex Male 8:19 PM EST Gender Identity Not on file Sexual Orientation Not on file documented as of this encounter Plan of Treatment Not on file documented as of this encounter Procedures Procedure Name Priority Date/Time Associated Diagnosis Comments COMPLETE BLOOD COUNT Routine 09/14/2024 6:50 AM EST Metabolic encephalopathy BILIRUBIN, DIRECT Routine 09/14/2024 6:5 0 AM EST Metabolic encephalopathy AMMONIA Routine 09/14/2024 6:50 AM EST Metabolic encephalopathy HEPATIC FUNCTION PANEL Routine 09/14/2024 6:50 AM EST Metabolic encephalopathy documented in this encounter Results * Ammonia (09/14/2024 6:50 AM EST) Ammonia 30 11 - 35 mcmol/L LAB CHEMISTRY METHOD 09/14/2024 7:51 AM EST [facility] ([facility] Blood Venous blood specimen / Unknown 09/14/2024 6:50 AM EST 09/14/2024 7:24 AM EST us Ritesh Hong MD LAB BLOOD ORDERABLES Final Resul t Performing Organization Address [facility]/ZIP Co de Phone Number [facility] [address] [place] [address], [place] [phone] * Bilirubin, direct (09/14/2024 6:50 AM EST) Pathologist [facility] Bilirubin, Direct 0.1 0.0 - 0.3 mg/dL LAB CHEMISTRY METHOD 09/14/2024 8:[address] [facility] Blood Venous blood specimen / Unknown 09/14/2024 6:50 AM EST 09/14/2024 7:24 AM EST us Ritesh Hong MD LAB BLOOD ORDERABLES Final Resul t Performing Organization Address [facility] de Phone Number [facility] [address] [place] [address], [place] [phone] * Complete blood count (09/14/2024 6:50 AM EST) [facility] WBC 8.4 4.8 - 10.8 K/mcL LAB HEMETOLOGY METHOD 09/14/2024 7:[address] [facility] RBC 4.90 4.50 - 5.50 M/mcL LAB HEMETOLOGY METHOD 09/14/2024 7:[address] [facility] Hemoglobin 15.6 13.5 - 17.5 g/dL LAB HEMETOLOGY METHOD 09/14/2024 7:[address] [facility] Hematocrit 46.3 42.0 - 54.0 % LAB HEMETOLOGY METHOD 09/14/2024 7:[address] [facility] MCV 94.1 79.0 - 98.0 FL LAB HEMETOLOGY METHOD 09/14/2024 7:[address] [facility] MCH 31.7 27.0 - 32.0 pcg LAB HEMETOLOGY METHOD 09/14/2024 7:[address] [facility] MCHC 33.7 32.0 - 37.0 g/dL LAB HEMETOLOGY METHOD 09/14/2024 7:[address] [facility] RDW 11.7 11.0 - 15.0 % LAB HEMETOLOGY METHOD 09/14/2024 7:[address] [facility] Platelets 210 130 - 400 K/mcL LAB HEMETOLOGY METHOD 09/14/2024 7:[address] [facility] MPV 10.9 7.0 - 11.0 FL LAB HEMETOLOGY METHOD 09/14/2024 7:[address] [facility] NRBC 0.0 <1.0 % LAB HEMETOLOGY METHOD 09/14/2024 7:[address] [facility] NRBC Absolute 0.00 <0.10 K/mcL LAB HEMETOLOGY METHOD 09/14/2024 7:[address] [facility] Blood Venous blood specimen / Unknown 09/14/2024 6:50 AM EST 09/14/2024 7:24 AM EST us Ritesh Hong MD LAB BLOOD ORDERABLES Final Resul t [facility] [address] [place] [address], * (ABNORMAL) Hepatic function panel (09/14/2024 6:50 AM EST) Total Protein 6.3 6.0 - 8.0 g/dL LAB CHEMISTRY METHOD 09/14/2024 8:[address] [facility] Albumin 3.3 3.2 - 5.0 g/dL LAB CHEMISTRY METHOD 09/14/2024 8:[address] [facility] Total Bilirubin 0.4 0.0 - 1.4 mg/dL LAB CHEMISTRY METHOD 09/14/2024 8:[address] [facility] Bilirubin, Direct 0.1 0.0 - 0.3 mg/dL LAB CHEMISTRY METHOD 09/14/2024 8:[address] [facility] Bilirubin, Indirect 0.3 0.0 - 1.1 mg/dL LAB CHEMISTRY METHOD 09/14/2024 8:[address] [facility] ALT (SGPT) 66(H) 10 - 60 unit/L LAB CHEMISTRY METHOD 09/14/2024 8:[address] [facility] AST (SGOT) 20 10 - 42 unit/L LAB CHEMISTRY METHOD 09/14/2024 8:[address] [facility] Alkaline Phosphatase 73 42 - 121 unit/L LAB CHEMISTRY METHOD 09/14/2024 8:[address] [facility] Blood Venous blood specimen / Unknown 09/14/2024 6:50 AM EST 09/14/2024 7:24 AM EST us Ritesh Hong MD LAB BLOOD ORDERABLES Final Resul t [facility] [address] [place] [address], documented in this encounter Visit Diagnoses Diagnosis Metabolic encephalopathy documented in this encounter Care Teams Conveyor Line Battery Charger Relationship Specialty Start Date End Date Ritesh Hong MD [address] [place] [address] [address] [place] [address] PCP - General Internal Medicine 09/26/24 documented as of this encounter
--- OUTSIDE RECORDS SUMMARY | 2024-12-20 11:20 | XMS_ITS | Encounter Summary ---
Author Organization [facility] Address [address] [place] [address] Care Team Providers Care Barrel Drainer Name Role Phone Ritesh Hong MD Primary Care Provider [phone] Encounter Details Date Type Department Care Team (Late st Contact Info) Description 12/13/[address] [facility] - Main Lab [address] [place] [address] Ritesh Hong MD [address] [place] [address] [address] [place], [place] Other toxic encephalopathy Social History Tobacco Use Types Packs/Day [...] Procedure Name Priority Date/Time Associated Diagnosis Comments BILIRUBIN, DIRECT Routine 12/13/2024 6:5 0 AM EDT Other toxic encephalopathy AMMONIA Routine 12/13/2024 6:50 AM EDT Other toxic encephalopathy documented in this encounter Results * (ABNORMAL) Ammonia (12/13/2024 6:50 AM EDT) Ammonia 50(H) 11 - 35 mcmol/L LAB CHEMISTRY METHOD 12/13/2024 7:58 AM EDT [facility] ([facility]) [facility] Blood Venous blood specimen / Unknown 12/13/2024 6:50 AM EDT 12/13/2024 7:18 AM EDT us Ritesh Hong MD LAB BLOOD ORDERABLES Final Resul t Performing Organization Address City/State/[facility] Co de Phone Number [facility] [address] [place] [address], [place] [phone] * Bilirubin, direct (12/13/2024 6:50 AM EDT) Bilirubin, Direct 0.1 0.0 - 0.3 mg/dL LAB CHEMISTRY METHOD 12/13/2024 8:13 AM EDT [facility] Blood Venous blood specimen / Unknown 12/13/2024 6:50 AM EDT 12/13/2024 7:18 AM EDT Ritesh Hong MD LAB BLOOD ORDERABLES Final Resul t Performing Organization Address [facility] Co de Phone Number [facility] [address] [place] [address], [place] [phone] documented in this encounter Visit Diagnoses Diagnosis Other toxic encephalopathy documented in this encounter Care Teams Barrel Drainer Relationship Specialty Start Date End Date Ritesh Hong MD [address] [place] [address] Dr [address] [place], [place] PCP - General Internal Medicine 09/26/24 documented as of this encounter
--- OUTSIDE RECORDS SUMMARY | 2024-12-20 11:20 | XMS_ITS | Encounter Summary ---
Author Organization [facility] Address [address] [place] [address] Care Team Providers Care Commercial Maintenance Technician Name Role Phone Ritesh Hong MD Primary Care Provider [phone] Encounter Details Date Type Department Care Team (Late st Contact Info) Description 07/11/2024 Lab Requisition [facility] - Main Lab [address] [facility] [place] [address] Ritesh Hong MD [address] [place] [address] Dr [address] [place], [place] Hyperlipidemia, unspecified Social History Tobacco Use Types Packs/Day Years Used Date Smoking Tobacco: Never Assessed Sex and Gender Information Value Date Recorded Sex Assigned at Not on file Legal Sex Male 8:19 PM EST Gender Identity Not on file Sexual Orientation Not on file documented as of this encounter Plan of Treatment Not on file documented as of this encounter Visit Diagnoses Diagnosis Hyperlipidemia, unspecified documented in this encounter Care Teams Commercial Maintenance Technician Relationship Specialty Start Date End Date Ritesh Hong MD [address] [place] [address] Dr [address] [place], [place] PCP - General Internal Medicine 09/26/24 documented as of this encounter
--- OUTSIDE RECORDS SUMMARY | 2024-12-20 11:20 | XMS_ITS | Clinical Summary ---
Author Organization [facility] Address [address] [place] [address] Phone Care Team Providers Care Life Coach Name Role Phone Ritesh Hong MD Primary Care Provider [phone] Encounters Date Type Department Care Team Description 12/13/2024 Lab Requisition [facility] [address] [place] [address] Ritesh Hong MD Other toxic encephalopathy 10/13/2024 Lab Requisition [facility] [address] [place] [address] Ritesh Hong MD Hyperlipidemia, unspecified from Last 3 Months Social History Tobacco Use Types Packs/Day Years Used Date Smoking Tobacco: Never Assessed Sex and Gender Information Value Date Recorded Sex Assigned at Not on file Legal Sex Male 8:19 PM EST Gender Identity Not on file Sexual Orientation Not on file Plan of Treatment Health Maintenance Due Date Last Done Comments DTaP,Tdap,and Td Vaccines (1 - Tdap) 1994 Hepatitis B Vaccines (1 of 3 - 19+ 3-dose series) 1994 Colorectal Cancer Screening: Colonoscopy 08/01/2022 Depression Screening 08/01/2022 HIV Screening 08/01/2022 Hepatitis C Screening 08/01/2022 Medicare Annual Wellness Visit 08/01/2022 Social Influencers of Health Screening 08/01/2022 COVID-19 Vaccine ( - 2023-2 5 season) 2024 Influenza Vaccine (Season Ended) 2025 Cholesterol Screening (Lipid Panel) 07/11/2029 07/11/2024 HIB Vaccines Aged Out No longer eligi ble based on patient's age to complete this topic HPV Vaccines Aged Out No longer eligi ble based on patient's age to complete this topic Hepatitis A Vaccines Aged Out No long er eligible based on patient's age to complete this topic IPV Vaccines Aged Out No longer eligi ble based on patient's age to complete this topic MMR Vaccines Aged Out No longer eligi ble based on patient's age to complete this topic Meningococcal ACWY Vaccine Aged Out N o longer eligible based on patient's age to complete this topic Meningococcal B Vaccine Aged Out No l onger eligible based on patient's age to complete this topic Pneumococcal Vaccine: Pediat rics (0 to 5 Years) and At-Risk Patients (6 to 64 Years) Aged Out No longer eligi ble based on patient's age to complete this topic RSV Immunization Patients Un iesha 20 months Aged Out No longer eligible b ased on patient's age to complete this topic Varicella Vaccines Aged Out No longer eligible based on patient's age to complete this topic Procedures Procedure Name Priority Date/Time Associated Diagnosis Comments AMMONIA Routine 12/13/2024 6:50 AM EDT Other toxic encephalopathy BILIRUBIN, DIRECT Routine 12/13/2024 6:5 0 AM EDT Other toxic encephalopathy COMPREHENSIVE METABOLIC PANEL Routine 10/13/2024 6:05 AM EST Hyperlipidemia, unspecified LIPID PANEL WITH REFLEX TO DIRECT LDL Routine 07/11/2024 5:00 AM EST Hyperlipidemia, unspecified from Last 3 Months or Most Recently Relevant to Health Maintenance Results * Bilirubin, direct (12/13/2024 6:50 AM EDT) Bilirubin, Direct 0.1 0.0 - 0.3 mg/dL LAB CHEMISTRY METHOD 12/13/2024 8:13 AM EDT [facility] Blood Venous blood specimen / Unknown 12/13/2024 6:50 AM EDT 12/13/2024 7:18 AM EDT us Ritesh Hong MD LAB BLOOD ORDERABLES Final Resul t [facility]) [facility] [address] [place] [address], [place] [phone] * (ABNORMAL) Ammonia (12/13/2024 6:50 AM EDT) Pathologist [facility] Ammonia 50(H) 11 - 35 mcmol/L LAB CHEMISTRY METHOD 12/13/2024 7:58 AM EDT [facility] Blood Venous blood specimen / Unknown 12/13/2024 6:50 AM EDT 12/13/2024 7:18 AM EDT us Ritesh Hong MD LAB BLOOD ORDERABLES Final Resul t [facility] [address] [place] [address], [place] [phone] * Comprehensive metabolic panel (10/13/2024 6:05 AM EST) Pathologist [facility] Sodium 138 133 - 145 mmol/L LAB CHEMISTRY METHOD 10/13/2024 7:46 AM [facility] Potassium 4.7 3.5 - 5.5 mmol/L LAB CHEMISTRY METHOD 10/13/2024 7:46 AM [facility] Chloride 107 96 - 110 mmol/L LAB CHEMISTRY METHOD 10/13/2024 7:46 AM [facility] CO2 26 21 - 32 mmol/L LAB CHEMISTRY METHOD 10/13/2024 7:46 AM [facility] Anion Gap 5 3 - 11 LAB CHEMISTRY METHOD 10/13/2024 7:46 AM [facility] Glucose 90 70 - 100 mg/dL LAB CHEMISTRY METHOD 10/13/2024 7:46 AM [facility] BUN 23 5 - 25 mg/dL LAB CHEMISTRY METHOD 10/13/2024 7:46 AM [facility] Creatinine 1.15 0.70 - 1.30 mg/dL LAB CHEMISTRY METHOD 10/13/2024 7:46 AM [facility] eGFR 78 >=60 mL/min/1. 73m2 LAB CHEMISTRY METHOD 10/13/2024 7:46 AM [facility] Comment:Calculation based on the??Chronic Kidney Disease Epidemiology Collaboration (CKD-EPI) equation refit??without adjustment for race. BUN/Creatinine Ratio 20.0 LAB CHEMISTRY METHOD 10/13/2024 7:46 AM [facility] Calcium 9.1 8.5 - 10.5 mg/dL LAB CHEMISTRY METHOD 10/13/2024 7:46 AM [facility] AST (SGOT) 25 10 - 42 unit/L LAB CHEMISTRY METHOD 10/13/2024 7:46 AM [facility] ALT (SGPT) 48 10 - 60 unit/L LAB CHEMISTRY METHOD 10/13/2024 7:46 AM [facility] Alkaline Phosphatase 82 42 - 121 unit/L LAB CHEMISTRY METHOD 10/13/2024 7:46 AM [facility] Total Protein 6.5 6.0 - 8.0 g/dL LAB CHEMISTRY METHOD 10/13/2024 7:46 AM [facility] Albumin 3.5 3.2 - 5.0 g/dL LAB CHEMISTRY METHOD 10/13/2024 7:46 AM [facility] Total Bilirubin 0.5 0.0 - 1.4 mg/dL LAB CHEMISTRY METHOD 10/13/2024 7:46 AM [facility] Blood Venous blood specimen / Unknown 10/13/2024 6:05 AM EST 10/13/2024 6:48 AM EST us Ritesh Hong MD LAB BLOOD ORDERABLES Final Resul t [facility] [address] [place] [address], [place] [phone] * (ABNORMAL) Lipid panel with reflex to direct LDL (07/11/2024 5:00 AM EST) Cholesterol 105 0 - 200 mg/dL LAB CHEMISTRY METHOD 07/11/2024 6:35 AM [facility] Triglycerides 263(H) 0 - 150 mg/dL LAB CHEMISTRY METHOD 07/11/2024 6:35 AM [facility] HDL 35(L) >=40 mg/dL LAB CHEMISTRY METHOD 07/11/2024 6:35 AM [facility] LDL Calculated 17 0 - 100 mg/dL LAB CHEMISTRY METHOD 07/11/2024 6:35 AM [facility] VLDL Cholesterol Pancho 52.6 mg/dL LAB CHEMISTRY METHOD 07/11/2024 6:35 AM [facility] Non HDL Chol. (LDL+VLDL) 70 <145 mg/dL LAB CHEMISTRY METHOD 07/11/2024 6:35 AM [facility] Chol/HDL Ratio 3.0 0.0 - 4.4 LAB CHEMISTRY METHOD 07/11/2024 6:35 AM [facility] Blood Venous blood specimen / Unknown 07/11/2024 5:00 AM EST 07/11/2024 6:01 AM EST Ritesh Hong MD LAB BLOOD ORDERABLES Final Resul t [facility] [address] [place] [address], from Last 3 Months or Most Recently Relevant to Health Maintenance Insurance MEDICARE Care Teams Life Coach Relationship Specialty Start Date End Date Ritesh Hong MD [address] [place] [address] Dr [address] [place] PCP - General Internal Medicine 09/26/24
--- OUTSIDE RECORDS SUMMARY | 2024-12-20 11:20 | XMS_ITS | Encounter Summary ---
Author Organization [facility] Address [address] [place] [address] Care Team Providers Care Commercial Front Load Driver Name Role Phone Ritesh Hong MD Primary Care Provider [phone] Encounter Details Date Type Department Care Team (Late st Contact Info) Description 07/11/2024 Lab Requisition [facility] - Main Lab [address] [place] [address] Ritesh Hong MD [address] [place] [address] [address] [place] Hyperlipidemia, unspecified Social History Tobacco Use Types [...] Procedure Name Priority Date/Time Associated Diagnosis Comments LIPID PANEL WITH REFLEX TO DIRECT LDL Routine 07/11/2024 5:00 AM EST Hyperlipidemia, unspecified COMPREHENSIVE METABOLIC PANEL Routine 07/11/2024 5:00 AM EST Hyperlipidemia, unspecified documented in this encounter Results * (ABNORMAL) Lipid panel with reflex to direct LDL (07/11/2024 5:00 AM EST) Cholesterol 105 0 - 200 mg/dL LAB CHEMISTRY METHOD 07/11/2024 6:35 AM EST [facility] Triglycerides 263(H) 0 - 150 mg/dL LAB CHEMISTRY METHOD 07/11/2024 6:35 AM EST [facility] HDL 35(L) >=40 mg/dL LAB CHEMISTRY METHOD 07/11/2024 6:35 AM [facility] LDL Calculated 17 0 - 100 mg/dL LAB CHEMISTRY METHOD 07/11/2024 6:35 AM EST [facility] VLDL Cholesterol Pancho 52.6 mg/dL LAB CHEMISTRY METHOD 07/11/2024 6:35 AM [facility] Non HDL Chol. (LDL+VLDL) 70 <145 mg/dL LAB CHEMISTRY METHOD 07/11/2024 6:35 AM [facility] Chol/HDL Ratio 3.0 0.0 - 4.4 LAB CHEMISTRY METHOD 07/11/2024 6:35 AM [facility] Blood Venous blood specimen / Unknown 07/11/2024 5:00 AM EST 07/11/2024 6:01 AM EST us Ritesh Hong MD LAB BLOOD ORDERABLES Final Resul t [facility] [address] [place] [address], [place] [phone] * (ABNORMAL) Comprehensive metabolic panel (07/11/2024 5:00 AM EST) Sodium 139 133 - 145 mmol/L LAB CHEMISTRY METHOD 07/11/2024 6:35 AM [facility] Potassium 4.4 3.5 - 5.5 mmol/L LAB CHEMISTRY METHOD 07/11/2024 6:35 AM [facility] Chloride 109 96 - 110 mmol/L LAB CHEMISTRY METHOD 07/11/2024 6:35 AM [facility] CO2 23 21 - 32 mmol/L LAB CHEMISTRY METHOD 07/11/2024 6:35 AM [facility] Anion Gap 7 3 - 11 LAB CHEMISTRY METHOD 07/11/2024 6:35 AM [facility] Glucose 93 70 - 100 mg/dL LAB CHEMISTRY METHOD 07/11/2024 6:35 AM [facility] BUN 24 5 - 25 mg/dL LAB CHEMISTRY METHOD 07/11/2024 6:35 AM [facility] Creatinine 1.21 0.70 - 1.30 mg/dL LAB CHEMISTRY METHOD 07/11/2024 6:35 AM [facility] eGFR 74 >=60 mL/min/1. 73m2 LAB CHEMISTRY METHOD 07/11/2024 6:35 AM [facility] Comment:Calculation based on the??Chronic Kidney Disease Epidemiology Collaboration (CKD-EPI) equation refit??without adjustment for race. BUN/Creatinine Ratio 19.8 LAB CHEMISTRY METHOD 07/11/2024 6:35 AM [facility] Calcium 8.7 8.5 - 10.5 mg/dL LAB CHEMISTRY METHOD 07/11/2024 6:35 AM [facility] AST (SGOT) 25 10 - 42 unit/L LAB CHEMISTRY METHOD 07/11/2024 6:35 AM [facility] ALT (SGPT) 61(H) 10 - 60 unit/L LAB CHEMISTRY METHOD 07/11/2024 6:35 AM [facility] Alkaline Phosphatase 84 42 - 121 unit/L LAB CHEMISTRY METHOD 07/11/2024 6:35 AM [facility] Total Protein 6.5 6.0 - 8.0 g/dL LAB CHEMISTRY METHOD 07/11/2024 6:35 AM [facility] Albumin 3.3 3.2 - 5.0 g/dL LAB CHEMISTRY METHOD 07/11/2024 6:35 AM [facility] Total Bilirubin 0.4 0.0 - 1.4 mg/dL LAB CHEMISTRY METHOD 07/11/2024 6:35 AM [facility] Blood Venous blood specimen / Unknown 07/11/2024 5:00 AM EST 07/11/2024 6:01 AM EST Ritesh Hong MD LAB BLOOD ORDERABLES Final Resul t [facility] [place] ([facility] H[facility] LAB [address] [place] [address], documented in this encounter Visit Diagnoses Diagnosis Hyperlipidemia, unspecified documented in this encounter Care Teams Commercial Front Load Driver Relationship Specialty Start Date End Date Ritesh Hong MD [address] [place] [address] Dr [address] [place], [place] PCP - General Internal Medicine 09/26/24 documented as of this encounter
--- OUTSIDE RECORDS SUMMARY | 2024-12-20 11:20 | XMS_ITS | Encounter Summary ---
Author Organization [facility] Address [address] [place] [address] Care Team Providers Care Manager Career Name Role Phone Ritesh Hong MD Primary Care Provider [phone] Encounter Details Date Type Department Care Team (Late st Contact Info) Description 10/13/2024 Lab Requisition [facility] - Main Lab [address] [place] [address] Ritesh Hong MD [address] [place] [address] [address] [place], [place] Hyperlipidemia, unspecified Social History Tobacco Use [...] Procedure Name Priority Date/Time Associated Diagnosis Comments COMPREHENSIVE METABOLIC PANEL Routine 10/13/2024 6:05 AM EST Hyperlipidemia, unspecified documented in this encounter Results * Comprehensive metabolic panel (10/13/2024 6:05 AM EST) Sodium 138 133 - 145 mmol/L LAB CHEMISTRY METHOD 10/13/2024 7:46 AM EST [facility] Potassium 4.7 3.5 - 5.5 mmol/L LAB CHEMISTRY METHOD 10/13/2024 7:46 AM EST [facility] Chloride 107 96 - 110 mmol/L LAB CHEMISTRY METHOD 10/13/2024 7:46 AM EST [facility] CO2 26 21 - 32 mmol/L LAB CHEMISTRY METHOD 10/13/2024 7:46 AM EST [facility] Anion Gap 5 3 - 11 LAB CHEMISTRY METHOD 10/13/2024 7:46 AM [facility] Glucose 90 70 - 100 mg/dL LAB CHEMISTRY METHOD 10/13/2024 7:46 AM [facility] BUN 23 5 - 25 mg/dL LAB CHEMISTRY METHOD 10/13/2024 7:46 AM [facility] Creatinine 1.15 0.70 - 1.30 mg/dL LAB CHEMISTRY METHOD 10/13/2024 7:46 AM [facility] eGFR 78 >=60 mL/min/1. 73m2 LAB CHEMISTRY METHOD 10/13/2024 7:46 AM [facility] Comment:Calculation based on the??Chronic Kidney Disease Epidemiology Collaboration (CKD-EPI) equation refit??without adjustment for race. BUN/Creatinine Ratio 20.0 LAB CHEMISTRY METHOD 10/13/2024 7:46 AM [facility] Calcium 9.1 8.5 - 10.5 mg/dL LAB CHEMISTRY METHOD 10/13/2024 7:46 AM [facility] AST (SGOT) 25 10 - 42 unit/L LAB CHEMISTRY METHOD 10/13/2024 7:46 AM [facility] ALT (SGPT) 48 10 - 60 unit/L LAB CHEMISTRY METHOD 10/13/2024 7:46 AM [facility] Alkaline Phosphatase 82 42 - 121 unit/L LAB CHEMISTRY METHOD 10/13/2024 7:46 AM [facility] Total Protein 6.5 6.0 - 8.0 g/dL LAB CHEMISTRY METHOD 10/13/2024 7:46 AM [facility] Albumin 3.5 3.2 - 5.0 g/dL LAB CHEMISTRY METHOD 10/13/2024 7:46 AM [facility] Total Bilirubin 0.5 0.0 - 1.4 mg/dL LAB CHEMISTRY METHOD 10/13/2024 7:46 AM [facility] Blood Venous blood specimen / Unknown 10/13/2024 6:05 AM EST 10/13/2024 6:48 AM EST us Ritesh Hong MD LAB BLOOD ORDERABLES Final Resul t [facility] ([facility]) [facility] [address] [place] [address], documented in this encounter Visit Diagnoses Diagnosis Hyperlipidemia, unspecified documented in this encounter Care Teams Manager Career Relationship Specialty Start Date End Date Ritesh Hong MD [address] [place] [address] Dr [address] [place] PCP - General Internal Medicine 09/26/24 documented as of this encounter
== END ==
LOC: HO.CARD 09:53
PROVIDERS: Visit Provider Internal Medicine
DX: Z95.3 Presence of xenogenic heart valve (principal)
CPT/HCPCS: 93306; Q9957

== ENCOUNTER → 2024-12-20 10:03 | Outpatient (BNV) | payer MEDICAID, SELFPAY | PROVIDERS: Visit Provider Internal Medicine | DX: Z95.3 Presence of xenogenic heart valve (principal) | CPT/HCPCS: 93306 ==

== ENCOUNTER 2025-01-09 13:02 | Outpatient (AMB) | payer MEDICAID, SELFPAY ==
--- NOTE | 2025-01-09 13:11 | MHC.OFFVIS ---
Vital Signs 01/09/25 13:12 Height 6 ft 1 in Weight 227 lb 1.218 oz BMI 30.0 BP 124/64 Blood Pressure Location Lt brachial Position Sitting Pulse 94 Pulse Source Monitor Intake Visit Reasons: 1 year fu Allergies No Known Allergies Allergy (Verified 12/29/22 08:27) Medication List - Last Reconciled 01/09/25 by Shahbaz Tsai MD aspirin 81 mg PO DAILY atorvastatin 20 mg PO BEDTIME bisacodyl 10 mg NJ DAILY PRN calcium carbonate (Tums) 200 mg PO BID cyclobenzaprine 10 mg PO BEDTIME diphenhydramine HCl (Allergy (diphenhydramine)) 25 mg PO BEDTIME fluoride (sodium) 1.1% ([employer]) 1 appl dental DAILY folic acid 1 mg PO DAILY furosemide 20 mg PO DAILY gabapentin 800 mg PO DAILY gabapentin 400 mg PO BID hydroxyzine HCl 50 mg PO BID melatonin 3 mg PO BEDTIME PRN multivitamin with minerals 1 cap PO DAILY posaconazole 300 mg PO DAILY sennosides (senna) 8.6 mg PO DAILY thiamine HCl (vitamin B1) 50 mg PO DAILY trazodone 100 mg PO BEDTIME PRN HPI Comments Details: Jesus Alberto returns for follow-up. He lives in [facility]. 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 After that, he was sent to [facility] for rehabilitation and he has essentially been here. Overall, he states he feels good. He does not have any complaints like angina or shortness of breath or palpitations or dizzy spells or in fact anything cardiac related. [facility] Surgical History History of heart valve replacement (~10/2020) Family History Father No problems noted. Mother No problems noted. Social History Patient Tobacco Use Status: Current everyday Tobacco user Cigarettes Per Day: 4 Review of Systems Const Denies weakness ENT Denies dizziness Card Denies chest pain, Denies chest pain with activity, Denies syncope, Denies rapid heart rate, Denies pedal edema, Denies edema, Denies leg edema, Denies lightheadedness, Denies palpitations, Denies dyspnea, Denies dyspnea on exertion and Denies orthopnea Resp Denies cough, Denies dyspnea and Denies dyspnea on exertion GI Denies hematochezia and Denies change in stool character Musc Denies abnormal gait, Denies muscle cramps, Denies muscle weakness, Denies numbness, Denies radiating pain into limb and Denies tingling Neuro Denies abnormal gait, Denies dizziness, Denies syncope, Denies numbness, Denies tingling and Denies weakness Endo Denies palpitations Physical Exam Vital Signs: Last Vital Signs Pulse 94 01/09/25 13:12 BP 124/64 01/09/25 13:12 BMI result Body Mass Index 30.0 Const General: comfortable and no acute distress Orientation/consciousness: patient oriented x3 HEENT Other: Unremarkable Head: Yes normal to inspection Neck Neck: Yes normal visual inspection Chest Chest palpation & inspection: normal inspection of the chest Resp Auscultation: clear to auscultation bilaterally Cardio Palpation: normal PMI Heart sounds: S1 normal heart sound present, S2 normal heart sound present, no gallops, no murmurs and no rubs GI Palpation (GI): Soft to palpation Back/Spine/Pelvis Other: unremarkable Skin General skin exam: no rashes or lesions noted Neuro General: patient oriented x3 Extrem General: Yes normal to inspection Psych Mental Status: mental status grossly normal Office Procedures EKG Details: EKG with underlying sinus rhythm at 94/Min; nonspecific ST-[place] changes; [place] [id number], Complete Assessment & Plan Assessment & Plan (1) Status post mitral valve replacement with bioprosthetic valve: Code(s): Z95.3 - Presence of xenogenic heart valve Category: Surgical (2) History of endocarditis: Code(s): Z86.79 - Personal history of other diseases of the circulatory system Category: Medical Plan s/p mitral valve repair 2016. 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 Hence underwent redo sternotomy and replacement of mitral valve with 31 mm pericardial tissue valve. November 2020- ISMAEL- [id number] aortic regurgitation. In that study, the bioprosthetic mitral valve was reported to be functioning normally with trace regurgitation. In the most recent echocardiogram from last month, LVEF is 40-45%. Bioprosthetic valve with normal function. Mean gradient across the valve was 3 mm Hg at 74/Min. In 2023, again LVEF was 40-45%. In 2022, LVEF was low normal at 52%. There is slight drop in LVEF but etiology is not entirely clear. Highly doubt any ischemic heart disease as he has got no anginal symptoms whatsoever nor major risk factors. His blood pressure is well controlled. Not a known diabetic. Clinically, he remains asymptomatic from cardiac and hence no specific management for the mild LV dysfunction. We will follow him in one year with an echocardiogram. In the interim, advised him to report to the nursing staff if any symptoms of concern and he understands that. He can remain on aspirin. It seems he is also on long-term antifungals. Infective endocarditis prophylaxis per protocol. Also discussed with senior care staff. Discussion Notes During the visit, I discussed with the patient the history of his cardiac interventions, including mitral valve repair in 2016 and valve replacement in 2020. We discussed the fact that he has been quite stable from the cardiac aspect for the last few years. Lastly, I highlighted the need for echo assessments and the importance of immediate medical attention should his cardiac symptoms worsen. Patient was informed and verbally consented to the use of an ambient scribe for clinic note documentation during this visit. Patient Instructions: - Report any shortness of breath or heart symptoms immediately. - Follow up with your PCP for medication and care management. - Attend routine echo assessments to monitor heart health. Coding Level of Care Code Est Pt Level 4 (51233) Complex EM visit Add On G2211 Diagnoses Status post mitral valve replacement with bioprosthetic valve Z95.3 History of endocarditis Z86.79 CPT Codes EKG - CPT: 67877-[id number], Complete ([id number])
[2025-01-09 13:12] VITALS: BP 124/64; PULSE 94
--- OUTSIDE RECORDS SUMMARY | 2025-01-09 14:05 | XMS_ITS | Encounter Summary ---
Author Organization [facility] Address [address] [place] [address] Care Team Providers Care Orchard Pruner Name Role Phone Ritesh Hong MD Primary Care Provider [phone] Encounter Details Date Type Department Care Team (Late st Contact Info) Description 07/11/[address] [facility] - Main Lab [address] [facility] [place] [address] Ritesh Hong MD [address] [place] [address] Dr [address] [place], [place] Hyperlipidemia, unspecified Social History Tobacco Use [...] unspecified documented in this encounter Care Teams Orchard Pruner Relationship Specialty Start Date End Date Ritesh Hong MD [address] [place] [address] Dr [address] [place], [place] PCP - General Internal Medicine 09/26/24 documented as of this encounter
--- OUTSIDE RECORDS SUMMARY | 2025-01-09 14:05 | XMS_ITS | Encounter Summary ---
Author Organization [facility] Address [id number] [place] [phone] Care Team Providers Care Supervisor Nurse Name Role Phone Ritesh Hong MD Primary Care Provider [phone] Encounter Details Date Type Department Care Team (Late st Contact Info) Description 09/14/2024 Lab Requisition [facility] - Main Lab [address] [place] [address] Ritesh Hong MD [address] [place] [address] [address] [place], [place] Metabolic encephalopathy Social History Tobacco Use [...] LAB CHEMISTRY METHOD 09/14/2024 7:51 AM EST [facility] Blood Venous blood specimen / Unknown 09/14/2024 6:50 AM EST 09/14/2024 7:24 AM EST us Ritesh Hong MD LAB BLOOD ORDERABLES Final Resul t Performing Organization Address [facility]/ZIP Co de Phone Number [facility] [address] [place] [address], [place] [phone] * Bilirubin, direct (09/14/2024 6:50 AM EST) Pathologist [facility] Bilirubin, Direct 0.1 0.0 - 0.3 mg/dL LAB CHEMISTRY METHOD 09/14/2024 8:03 AM EST [facility] Blood Venous blood specimen / Unknown 09/14/2024 6:50 AM EST 09/14/2024 7:24 AM EST us Ritesh Hong MD LAB BLOOD ORDERABLES Final Resul t Performing Organization Address [facility] de Phone Number [facility] [address] [place] [address], [place] [phone] * Complete blood count (09/14/2024 6:50 AM EST) [facility] WBC 8.4 4.8 - 10.8 K/mcL LAB HEMETOLOGY METHOD 09/14/2024 7:56 AM [facility] RBC 4.90 4.50 - 5.50 M/mcL LAB HEMETOLOGY METHOD 09/14/2024 7:56 AM [facility] Hemoglobin 15.6 13.5 - 17.5 g/dL LAB HEMETOLOGY METHOD 09/14/2024 7:56 AM [facility] Hematocrit 46.3 42.0 - 54.0 % LAB HEMETOLOGY METHOD 09/14/2024 7:56 AM [facility] MCV 94.1 79.0 - 98.0 FL LAB HEMETOLOGY METHOD 09/14/2024 7:56 AM [facility] MCH 31.7 27.0 - 32.0 pcg LAB HEMETOLOGY METHOD 09/14/2024 7:56 AM EST [facility] MCHC 33.7 32.0 - 37.0 g/dL LAB HEMETOLOGY METHOD 09/14/2024 7:56 AM [facility] RDW 11.7 11.0 - 15.0 % LAB HEMETOLOGY METHOD 09/14/2024 7:56 AM [facility] Platelets 210 130 - 400 K/mcL LAB HEMETOLOGY METHOD 09/14/2024 7:56 AM [facility] MPV 10.9 7.0 - 11.0 FL LAB HEMETOLOGY METHOD 09/14/2024 7:56 AM [facility] NRBC 0.0 <1.0 % LAB HEMETOLOGY METHOD 09/14/2024 7:56 AM [facility] NRBC Absolute 0.00 <0.10 K/mcL LAB HEMETOLOGY METHOD 09/14/2024 7:56 AM [facility] Blood Venous blood specimen / Unknown 09/14/2024 6:50 AM EST 09/14/2024 7:24 AM EST us Ritesh Hong MD LAB BLOOD ORDERABLES Final Resul t [facility] [address] [place] [address], * (ABNORMAL) Hepatic function panel (09/14/2024 6:50 AM EST) Total Protein 6.3 6.0 - 8.0 g/dL LAB CHEMISTRY METHOD 09/14/2024 8:03 AM [facility] Albumin 3.3 3.2 - 5.0 g/dL LAB CHEMISTRY METHOD 09/14/2024 8:03 AM [facility] Total Bilirubin 0.4 0.0 - 1.4 mg/dL LAB CHEMISTRY METHOD 09/14/2024 8:03 AM [facility] Bilirubin, Direct 0.1 0.0 - 0.3 mg/dL LAB CHEMISTRY METHOD 09/14/2024 8:03 AM [facility] Bilirubin, Indirect 0.3 0.0 - 1.1 mg/dL LAB CHEMISTRY METHOD 09/14/2024 8:03 AM [facility] ALT (SGPT) 66(H) 10 - 60 unit/L LAB CHEMISTRY METHOD 09/14/2024 8:03 AM [facility] AST (SGOT) 20 10 - 42 unit/L LAB CHEMISTRY METHOD 09/14/2024 8:03 AM [facility] Alkaline Phosphatase 73 42 - 121 unit/L LAB CHEMISTRY METHOD 09/14/2024 8:03 AM [facility] Blood Venous blood specimen / Unknown 09/14/2024 6:50 AM EST 09/14/2024 7:24 AM EST us Ritesh Hong MD LAB BLOOD ORDERABLES Final Resul t [facility] [address] [place] [address], documented in this encounter Visit Diagnoses Diagnosis Metabolic encephalopathy documented in this encounter Care Teams Supervisor Nurse Relationship Specialty Start Date End Date Ritesh Hong MD [address] [place] [address] [address] [place] [address] PCP - General Internal Medicine 09/26/24 documented as of this encounter
--- OUTSIDE RECORDS SUMMARY | 2025-01-09 14:05 | XMS_ITS | Encounter Summary ---
Author Organization [facility] Address [address] [place] [address] Care Team Providers Care Night Shift Manager Name Role Phone Ritesh Hong MD Primary Care Provider [phone] Encounter Details Date Type Department Care Team (Late st Contact Info) Description 10/13/2024 Lab Requisition [facility] - Main Lab [address] [place] [address] Ritesh Hong MD [address] [place] [address] [address] [place], [place] Hyperlipidemia, unspecified Social History Tobacco Use [...] 11 LAB CHEMISTRY METHOD 10/13/2024 7:[address] [facility] Glucose 90 70 - 100 mg/dL LAB CHEMISTRY METHOD 10/13/2024 7:[address] [facility] BUN 23 5 - 25 mg/dL LAB CHEMISTRY METHOD 10/13/2024 7:[address] [facility] Creatinine 1.15 0.70 - 1.30 mg/dL LAB CHEMISTRY METHOD 10/13/2024 7:[address] [facility] eGFR 78 >=60 mL/min/1. 73m2 LAB CHEMISTRY METHOD 10/13/2024 7:[address] [facility] Comment:Calculation based on the??Chronic Kidney Disease Epidemiology Collaboration (CKD-EPI) equation refit??without adjustment for race. BUN/Creatinine Ratio 20.0 LAB CHEMISTRY METHOD 10/13/2024 7:[address] [facility] Calcium 9.1 8.5 - 10.5 mg/dL LAB CHEMISTRY METHOD 10/13/2024 7:[address] [facility] AST (SGOT) 25 10 - 42 unit/L LAB CHEMISTRY METHOD 10/13/2024 7:[address] [facility] ALT (SGPT) 48 10 - 60 unit/L LAB CHEMISTRY METHOD 10/13/2024 7:[address] [facility] Alkaline Phosphatase 82 42 - 121 unit/L LAB CHEMISTRY METHOD 10/13/2024 7:[address] [facility] Total Protein 6.5 6.0 - 8.0 g/dL LAB CHEMISTRY METHOD 10/13/2024 7:[address] [facility] Albumin 3.5 3.2 - 5.0 g/dL LAB CHEMISTRY METHOD 10/13/2024 7:[address] [facility] Total Bilirubin 0.5 0.0 - 1.4 mg/dL LAB CHEMISTRY METHOD 10/13/2024 7:[address] [facility] Blood Venous blood specimen / Unknown 10/13/2024 6:05 AM EST 10/13/2024 6:48 AM EST us Ritesh Hong MD LAB BLOOD ORDERABLES Final Resul t [facility] [address] [place] [address], documented in this encounter Visit Diagnoses Diagnosis Hyperlipidemia, unspecified documented in this encounter Care Teams Night Shift Manager Relationship Specialty Start Date End Date Ritesh Hong MD [address] [place] [address] [address] [place] PCP - General Internal Medicine 09/26/24 documented as of this encounter
--- OUTSIDE RECORDS SUMMARY | 2025-01-09 14:05 | XMS_ITS | Encounter Summary ---
Author Organization [facility] Address [address] [place] [address] Care Team Providers Care Truck Driving Instructor Name Role Phone Ritesh Hong MD Primary Care Provider [phone] Encounter Details Date Type Department Care Team (Late st Contact Info) Description 12/13/2024 Lab Requisition [facility] - Main Lab [address] [place] [address] Ritesh Hong MD [address] [place] [address] [address] [place], [place] Other toxic encephalopathy Social History Tobacco [...] LAB CHEMISTRY METHOD 12/13/2024 7:58 AM EDT [facility] ([facility]) [facility] Blood Venous blood specimen / Unknown 12/13/2024 6:50 AM EDT 12/13/2024 7:18 AM EDT us Ritesh Hong MD LAB BLOOD ORDERABLES Final Resul t Performing Organization Address City/State/[facility] Co de Phone Number [facility] [address] [place] [address], [place] [phone] * Bilirubin, direct (12/13/2024 6:50 AM EDT) Bilirubin, Direct 0.1 0.0 - 0.3 mg/dL LAB CHEMISTRY METHOD 12/13/2024 8:13 AM EDT [facility] Blood Venous blood specimen / Unknown 12/13/2024 6:50 AM EDT 12/13/2024 7:18 AM EDT iRtesh Hong MD LAB BLOOD ORDERABLES Final Resul t Performing Organization Address [facility] Co de Phone Number [facility] [address] [place] [address], [place] [phone] documented in this encounter Visit Diagnoses Diagnosis Other toxic encephalopathy documented in this encounter Care Teams Truck Driving Instructor Relationship Specialty Start Date End Date Ritesh Hong MD [address] [place] [address] Dr [address] [place], [place] PCP - General Internal Medicine 09/26/24 documented as of this encounter
--- OUTSIDE RECORDS SUMMARY | 2025-01-09 14:05 | XMS_ITS | Clinical Summary ---
Author Organization [address] [facility] Address [address] [place] [address] Phone Care Team Providers Care Ring Cutter Lathe Operator Name Role Phone Ritesh Hong MD Primary Care Provider [phone] Encounters Date Type Department Care Team Description 01/09/2025 Lab Requisition [facility] [address] [place] [phone] Ritesh Hong MD Hyperlipidemia, unspecified; Candidal endocarditis 12/13/2024 Lab Requisition [facility] [address] [place] [phone] Ritesh Hong MD Other toxic encephalopathy 10/13/2024 Lab Requisition [facility] [address] [place] [phone] Ritesh Hong MD Hyperlipidemia, unspecified from Last [...] Ended) 2025 Cholesterol Screening (Lipid Panel) 07/11/2029 01/09/2025, 07/11/2024 HIB Vaccines Aged Out No longer [...] age to complete this topic Pneumococcal Vaccine: Pediatrics (0 to 5 Years) and At-Risk Patients (6 to 64 Years) Aged Out No longer eligible b ased on patient's age to complete this topic RSV Immunization Patients Under 20 months Aged Out No longer eligible b ased on patient's age to complete this topic Varicella Vaccines Aged Out No longer eligible based on patient's age to complete this topic Procedures Procedure Name Priority Date/Time Associated Diagnosis Comments LIPID PANEL WITH REFLEX TO DIRECT LDL Routine 01/09/2025 6:35 AM EDT Hyperlipidemia, unspecified Candidal endocarditis COMPREHENSIVE METABOLIC PANEL Routine 01/09/2025 6:35 AM EDT Hyperlipidemia, unspecified Candidal endocarditis AMMONIA Routine 12/13/2024 6:50 AM EDT Other toxic encephalopathy BILIRUBIN, DIRECT Routine 12/13/2024 6:5 0 AM EDT Other toxic encephalopathy COMPREHENSIVE METABOLIC PANEL Routine 10/13/2024 6:05 AM EST Hyperlipidemia, unspecified from Last 3 Months Results * (ABNORMAL) Lipid panel with reflex to direct LDL (01/09/2025 6:35 AM EDT) Cholesterol 118 0 - 200 mg/dL LAB CHEMISTRY METHOD 01/09/2025 8:05 AM EDT [facility] Triglycerides 412(H) 0 - 150 mg/dL LAB CHEMISTRY METHOD 01/09/2025 8:05 AM [facility] HDL 33(L) >=40 mg/dL LAB CHEMISTRY METHOD 01/09/2025 8:05 AM [facility] LDL Calculated 3 0 - 100 mg/dL LAB CHEMISTRY METHOD 01/09/2025 8:05 AM [facility] Comment:Unable to calculate when triglycerides >400 mg/dL. VLDL Cholesterol Pancho 82.4 mg/dL LAB CHEMISTRY METHOD 01/09/2025 8:05 AM T [facility] Comment:Unable to calculate when triglycerides >400 mg/dL. Non HDL Chol. (LDL+VLDL) 85 <145 mg/dL LAB CHEMISTRY METHOD 01/09/2025 8:05 AM [facility] Comment:Unable to calculate when triglycerides >400 mg/dL. Chol/HDL Ratio 3.6 0.0 - 4.4 LAB CHEMISTRY METHOD 01/09/2025 8:05 AM [facility] Blood Venous blood specimen / Unknown 01/09/2025 6:35 AM EDT 01/09/2025 7:11 AM EDT us Ritesh Hong MD LAB BLOOD ORDERABLES Final Resul t [facility] [address] [place] [address], * (ABNORMAL) Comprehensive metabolic panel (01/09/2025 6:35 AM EDT) Only the most recent of2 resultswithin the time period is included. Sodium 142 133 - 145 mmol/L LAB CHEMISTRY METHOD 01/09/2025 8:05 AM [facility] Potassium 4.9 3.5 - 5.5 mmol/L LAB CHEMISTRY METHOD 01/09/2025 8:05 AM [facility] Chloride 109 96 - 110 mmol/L LAB CHEMISTRY METHOD 01/09/2025 8:05 AM [facility] CO2 24 21 - 32 mmol/L LAB CHEMISTRY METHOD 01/09/2025 8:05 AM [facility] Anion Gap 9 3 - 11 LAB CHEMISTRY METHOD 01/09/2025 8:05 AM [facility] Glucose 97 70 - 100 mg/dL LAB CHEMISTRY METHOD 01/09/2025 8:05 AM [facility] BUN 20 5 - 25 mg/dL LAB CHEMISTRY METHOD 01/09/2025 8:05 AM [facility] Creatinine 1.04 0.70 - 1.30 mg/dL LAB CHEMISTRY METHOD 01/09/2025 8:05 AM [facility] eGFR 88 >=60 mL/min/1. 73m2 LAB CHEMISTRY METHOD 01/09/2025 8:05 AM [facility] Comment:Calculation based on the Chronic Kidney Disease Epidemiology Collaboration (CKD-EPI) equation refit without adjustment for race. BUN/Creatinine Ratio 19.2 LAB CHEMISTRY METHOD 01/09/2025 8:05 AM [facility] Calcium 8.6 8.5 - 10.5 mg/dL LAB CHEMISTRY METHOD 01/09/2025 8:05 AM [facility] AST (SGOT) 31 10 - 42 unit/L LAB CHEMISTRY METHOD 01/09/2025 8:05 AM [facility] ALT (SGPT) 85(H) 10 - 60 unit/L LAB CHEMISTRY METHOD 01/09/2025 8:05 AM [facility] Alkaline Phosphatase 89 42 - 121 unit/L LAB CHEMISTRY METHOD 01/09/2025 8:05 AM [facility] Total Protein 6.7 6.0 - 8.0 g/dL LAB CHEMISTRY METHOD 01/09/2025 8:05 AM [facility] Albumin 3.4 3.2 - 5.0 g/dL LAB CHEMISTRY METHOD 01/09/2025 8:05 AM EDT [facility] Total Bilirubin 0.3 0.0 - 1.4 mg/dL LAB CHEMISTRY METHOD 01/09/2025 8:05 AM EDT [facility] Blood Venous blood specimen / Unknown 01/09/2025 6:35 AM EDT 01/09/2025 7:11 AM EDT us Ritesh Hong MD LAB BLOOD ORDERABLES Final Resul t Performing Organization Address [facility] de Phone Number [facility] [address] [place] [address], [place] [phone] * Bilirubin, direct (12/13/2024 6:50 AM EDT) Bilirubin, Direct 0.1 0.0 - 0.3 mg/dL LAB CHEMISTRY METHOD 12/13/2024 8:13 AM EDT [facility] Blood Venous blood specimen / Unknown 12/13/2024 6:50 AM EDT 12/13/2024 7:18 AM EDT us Ritesh Hong MD LAB BLOOD ORDERABLES Final Resul t Performing Organization Address [facility] de Phone Number [facility] [address] [place] [address], [place] [phone] * (ABNORMAL) Ammonia (12/13/2024 6:50 AM EDT) Ammonia 50(H) 11 - 35 mcmol/L LAB CHEMISTRY METHOD 12/13/2024 7:58 AM EDT [facility] Blood Venous blood specimen / Unknown 12/13/2024 6:50 AM EDT 12/13/2024 7:18 AM EDT us Ritesh Hong MD LAB BLOOD ORDERABLES Final Resul t Performing Organization Address City/[facility]/ZIP Co de Phone Number [facility] [address] [place] [address], from Last 3 Months Insurance MEDICARE MEDICARE Care Teams Ring Cutter Lathe Operator Relationship Specialty Start Date End Date Ritesh Hong MD [address] [place] [address] Dr [address] [place], [place] PCP - General Internal Medicine 09/26/24
--- OUTSIDE RECORDS SUMMARY | 2025-01-09 14:05 | XMS_ITS | Encounter Summary ---
Author Organization [facility] Address [id number] [place] [id number] Care Team Providers Care Fire Equipment Inspector Helper Name Role Phone Ritesh Hong MD Primary Care Provider [phone] Encounter Details Date Type Department Care Team (Late st Contact Info) Description 01/09/2025 Lab Requisition [facility] - Main Lab [address] [facility] [place] [address] Ritesh Hong MD [address] [place] [address] [address] [place], [place] Hyperlipidemia, unspecified; Candidal endocarditis Social History Tobacco Use Types Packs/Day Years [...] 6:35 AM EDT Hyperlipidemia, unspecified 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 VLDL Cholesterol [place] 82.4 mg/dL LAB CHEMISTRY METHOD 01/09/2025 8:05 AM [facility] Comment:Unable to calculate when triglycerides >400 mg/dL. Non HDL Chol. (LDL+VLDL) 85 <145 mg/dL LAB CHEMISTRY METHOD 01/09/2025 8:05 AM [facility] Comment:Unable to calculate when triglycerides >400 mg/dL. Chol/HDL Ratio 3.6 0.0 - 4.4 LAB CHEMISTRY METHOD 01/09/2025 8:05 AM [facility] Blood Venous blood specimen / Unknown 01/09/2025 6:35 AM EDT 01/09/2025 7:11 AM EDT us Ritesh Hong MD LAB BLOOD ORDERABLES Final Resul t [facility] [address] [place] [address], [place] [phone] * (ABNORMAL) Comprehensive metabolic panel (01/09/2025 6:35 AM EDT) Sodium 142 133 - 145 mmol/L LAB CHEMISTRY METHOD 01/09/2025 8:05 AM [facility] Potassium 4.9 3.5 - 5.5 mmol/L LAB CHEMISTRY METHOD 01/09/2025 8:05 AM [facility] Chloride 109 96 - 110 mmol/L LAB CHEMISTRY METHOD 01/09/2025 8:05 AM [facility] CO2 24 21 - 32 mmol/L LAB CHEMISTRY METHOD 01/09/2025 8:05 AM [facility] Anion Gap 9 3 - 11 LAB CHEMISTRY METHOD 01/09/2025 8:05 AM [facility] Glucose 97 70 - 100 mg/dL LAB CHEMISTRY METHOD 01/09/2025 8:05 AM [facility] BUN 20 5 - 25 mg/dL LAB CHEMISTRY METHOD 01/09/2025 8:05 AM [facility] Creatinine 1.04 0.70 - 1.30 mg/dL LAB CHEMISTRY METHOD 01/09/2025 8:05 AM [facility] eGFR 88 >=60 mL/min/1. 73m2 LAB CHEMISTRY METHOD 01/09/2025 8:05 AM [facility] Comment:Calculation based on the Chronic Kidney Disease Epidemiology Collaboration (CKD-EPI) equation refit without adjustment for race. BUN/Creatinine Ratio 19.2 LAB CHEMISTRY METHOD 01/09/2025 8:05 AM [facility] Calcium 8.6 8.5 - 10.5 mg/dL LAB CHEMISTRY METHOD 01/09/2025 8:05 AM [facility] AST (SGOT) 31 10 - 42 unit/L LAB CHEMISTRY METHOD 01/09/2025 8:05 AM [facility] ALT (SGPT) 85(H) 10 - 60 unit/L LAB CHEMISTRY METHOD 01/09/2025 8:05 AM [facility] Alkaline Phosphatase 89 42 - 121 unit/L LAB CHEMISTRY METHOD 01/09/2025 8:05 AM [facility] Total Protein 6.7 6.0 - 8.0 g/dL LAB CHEMISTRY METHOD 01/09/2025 8:05 AM [facility] Albumin 3.4 3.2 - 5.0 g/dL LAB CHEMISTRY METHOD 01/09/2025 8:05 AM [facility] Total Bilirubin 0.3 0.0 - 1.4 mg/dL LAB CHEMISTRY METHOD 01/09/2025 8:05 AM EDT [facility] Blood Venous blood specimen / Unknown 01/09/2025 6:35 AM EDT 01/09/2025 7:11 AM EDT us Ritesh Hong MD LAB BLOOD ORDERABLES Final Resul t [facility] [address] [place] [address], documented in this encounter Visit Diagnoses Diagnosis Hyperlipidemia, unspecified 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
== END 2025-01-09 13:35 | disposition home or self-care (01) ==
PROVIDERS: PCP Hospitalist; Visit Provider Internal Medicine
DX: Z95.3 Presence of xenogenic heart valve (principal); Z86.79 Personal history of other diseases of the circulatory system
CPT/HCPCS: 93010; 99214; G2211

== ENCOUNTER → 2025-01-09 13:02 | Outpatient (BNVA) | payer MEDICAID, SELFPAY | PROVIDERS: Visit Provider Internal Medicine | DX: Z95.3 Presence of xenogenic heart valve (principal); Z86.79 Personal history of other diseases of the circulatory system | CPT/HCPCS: 93005; 99212 ==